=== PATIENT | female | born 1965 | race Caucasian/White ===

== ENCOUNTER → 2016-10-01 | Outpatient (CLI) | payer BC ==
--- NOTE | 2016-10-01 12:21 | DIAGNOSTIC IMAGING REPORT ---
L-SPINE MIN 4 VIEWS ROUTINE CLINICAL HISTORY: 50 years-old Female presenting with LOW BACK PAIN for several months. TECHNIQUE: Frontal, bilateral oblique, and lateral views of the lumbar spine as well as coned in lateral view of the lumbosacral junction were obtained. COMPARISON: None. FINDINGS: Dextroscoliotic curvature of the lumbar spine. Normal lumbar lordosis. Vertebral bodies and intervertebral disc spaces preserved. No significant degenerative change or evidence of osseous neural foraminal narrowing. Moderate stool burden throughout the colon. No gross pneumoperitoneum. IMPRESSION: Dextroscoliosis of the lumbar spine. Electronically signed by: Dexter Carlson M.D. 10/01/2016 12:19 PM Dictated Date/Time: 10/01/2016 12:17 PM
--- NOTE | 2016-10-01 12:21 | DIAGNOSTIC IMAGING REPORT ---
SACROILIAC JOINTS 3 VIEWS CLINICAL HISTORY: Low back pain of several months duration. FINDINGS: 3 views of the sacrum and sacroiliac joints are obtained. No prior studies are available for comparison at the time of dictation. The skeletal structures are osteopenic. There is no radiographic evidence of fracture. Sclerotic degenerative change is noted in the sacroiliac joints. No bony erosion is identified. Sclerotic change is also seen in the pubic symphysis. The hip joints are intact as imaged. There is a nonobstructed abdominal bowel gas pattern. IMPRESSION: 1. No acute bony abnormality is seen. 2. Osteopenia and mild sclerotic degenerative change of the sacroiliac joints as above. Electronically signed by: Ray White M.D. 10/01/2016 12:20 PM Dictated Date/Time: 10/01/2016 12:18 PM
== END | disposition home or self-care (01) ==
LOC: C.RAD 11:47
PROVIDERS: ATTEND Nurse Practitioner Family
DX: M54.5 Low back pain (principal); M41.86 Other forms of scoliosis, lumbar region; M85.80 Other specified disorders of bone density and structure, unspecified site

== ENCOUNTER → 2016-11-11 | Outpatient (CLI) | payer BC | END | disposition home or self-care (01) | LOC: C.MAMM 13:07 | PROVIDERS: ATTEND Nurse Practitioner Family | DX: M85.851 Other specified disorders of bone density and structure, right thigh (principal); M85.852 Other specified disorders of bone density and structure, left thigh ==

== ENCOUNTER 2017-01-05 16:10 | Emergency (ER) | payer BC ==
[~2017-01-05] VITALS: Ht 175.3 cm; Wt 98.0 kg
[2017-01-05 16:13] VITALS: TEMP 36.4; Ht 175.3 cm; Wt 98.0 kg
[2017-01-05 16:23] VITALS: O2SAT 98
[2017-01-05] MEDS ORDERED: SODIUM CHLORIDE 0.9% 1000ML 1,000 ML IV STA (16:23)
[2017-01-05] MEDS ORDERED: PROMETHAZINE HCL INJ 12.5 MG in SODIUM CHLORIDE 0.9% 50ML 50 ML IV STA (16:23)
--- NOTE | 2017-01-05 16:30 | EMERGENCY ROOM VISIT NOTE ---
History Report prepared by [place]: Sintia Matthew Under the Supervision of: Dr. Jet Peacock D.O. 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 She reports she felt the urgency to have a bowel movement while she was driving home this afternoon. She rushed into her home and had a BM, and while she was "bearing down" to have a bowel movement, she developed a "massive headache" and neck pain. She rates her pain as an 8/10. She denies any history of aneurysm in her family. Her LMP was several years ago due to menopause. She states her only daily medications are taken for depression and anxiety. She has never undergone major surgery before. 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 A total of 10 systems reviewed and were otherwise negative. Past Medical & Surgical Medical Problems: (1) Anxiety (2) Depression Social History Smoking Status: Never Smoker Smokeless Tobacco Use: No Alcohol Use: occasionally Drug Use: none Marital Status: Housing Status: lives with family Occupation Status: employed Current/Historical Medications Scheduled Paroxetine HCl (Paroxetine), 30 MG PO DAILY Scheduled PRN Aspirin (Aspirin Ec), 81 MG PO UD PRN for UNDECIDED Allergies Coded Allergies: No Known Allergies (Verified , 03/31/02) Physical Exam Vital Signs Date Time Temp Pulse Resp B/P (MAP) Pulse Ox O2 Delivery O2 Flow Rate FiO2 01/05/17 19:00 70 20 170/94 96 Room Air 01/05/17 18:00 68 20 151/115 95 Room Air 01/05/17 16:39 59 01/05/17 16:33 56 20 194/100 98 Room Air 01/05/17 16:23 98 Room Air 01/05/17 16:23 98 Room Air 01/05/17 16:13 36.4 65 20 196/107 100 Room Air Physical Exam GENERAL: Patient is awake and alert, very anxious and uncomfortable appearing EYES: The conjunctivae are clear. The pupils are round and reactive. EARS, NOSE, MOUTH AND THROAT: The nose is without any evidence of any deformity. Mucous membranes are moist tongue is midline NECK: The neck is nontender and supple. RESPIRATORY: Normal respiratory effort is noted there is no evidence of wheezing rhonchi or rales CARDIOVASCULAR: Regular rate and rhythm noted there no murmurs rubs or gallops normal S1 normal S2 GASTROINTESTINAL: The abdomen is soft. Bowel sounds are present in all quadrants. Abdomen is nontender MUSCULOSKELETAL/EXTREMITIES: There is no evidence of gross deformity full range of motion is noted in the hips and shoulders SKIN: There is no obvious evidence of any rash. There are no petechiae, pallor or cyanosis noted. NEUROLOGIC: Patient is awake alert and oriented x3 strength is symmetric patellar reflexes are 2+ bilaterally Medical Decision & Procedures ER Provider Diagnostic Interpretation: Radiology results as stated below per my review and radiologist interpretation: CT HEAD WITHOUT CONTRAST (CT) CLINICAL HISTORY: Acute change in mental status. Weakness. COMPARISON STUDY: 11/23/2013 TECHNIQUE: Axial CT of the brain is performed from the vertex to the skull base. IV contrast was not administered for this examination. A dose lowering technique was utilized adhering to the principles of ALARA. CT DOSE: 537.48 mGy.cm FINDINGS: No intra or extra-axial mass lesions are visualized. There is no CT evidence of acute cortical infarction. There is no evidence of midline shift. There is no acute hemorrhage. No calvarial fractures are visualized. The sella appears mildly expanded, unchanged from the preceding study There is no evidence of pathologic ventricular dilatation. There is no evidence of acute sinusitis. There is a right posterior nasal polyps versus engorgement of the nasal turbinate. IMPRESSION: No acute intracranial findings Electronically signed by: Dominic Akhtar M.D. 01/05/2017 4:35 PM CHEST ONE VIEW PORTABLE CLINICAL HISTORY: Altered mental status COMPARISON STUDY: No previous studies for comparison. FINDINGS: The cardiac and mediastinal contours are normal. There is no evidence of focal pulmonary consolidation. There is no evidence of failure. No pleural effusions are visualized. IMPRESSION: No active disease in the chest. Electronically signed by: Dominic Akhtar M.D. 01/05/2017 4:55 PM Laboratory Results 01/05/17 16:25 Red Blood Count 5.06, Mean Corpuscular Volume 84.8, Mean Corpuscular Hemoglobin 28.7, Mean Corpuscular Hemoglobin Concent 33.8, Mean Platelet Volume 10.6, Neutrophils (%) (Auto) 45.3, Lymphocytes (%) (Auto) 46.9, Monocytes (%) (Auto) 5.7, Eosinophils (%) (Auto) 1.6, Basophils (%) (Auto) 0.3, Neutrophils # (Auto) 2.86, Lymphocytes # (Auto) 2.96, Monocytes # (Auto) 0.36, Eosinophils # (Auto) 0.10, Basophils # (Auto) 0.02 01/05/17 16:25 Test 01/05/17 16:25 White Blood Count 6.31 K/uL (4.8-10.8) Red Blood Count 5.06 M/uL (4.2-5.4) Hemoglobin 14.5 g/dL (12.0-16.0) Hematocrit 42.9 % (37-47) Mean Corpuscular Volume 84.8 fL (80-100) Mean Corpuscular Hemoglobin 28.7 pg (25-34) Mean Corpuscular Hemoglobin Concent 33.8 g/dl (32-36) Platelet Count 184 K/uL (130-400) Mean Platelet Volume 10.6 fL (7.4-10.4) Neutrophils (%) (Auto) 45.3 % Lymphocytes (%) (Auto) 46.9 % Monocytes (%) (Auto) 5.7 % Eosinophils (%) (Auto) 1.6 % Basophils (%) (Auto) 0.3 % Neutrophils # (Auto) 2.86 K/uL (1.4-6.5) Lymphocytes # (Auto) 2.96 K/uL (1.2-3.4) Monocytes # (Auto) 0.36 K/uL (0.11-0.59) Eosinophils # (Auto) 0.10 K/uL (0-0.5) Basophils # (Auto) 0.02 K/uL (0-0.2) RDW Standard Deviation 38.1 fL (36.4-46.3) RDW Coefficient of Variation 12.5 % (11.5-14.5) Immature Granulocyte % (Auto) 0.2 % Immature Granulocyte # (Auto) 0.01 K/uL (0.00-0.02) Erythrocyte Sedimentation Rate 17 mm/hr (0-21) Prothrombin Time 10.7 SECONDS (9.0-12.0) Prothromb Time International Ratio 1.0 (0.9-1.1) Activated Partial Thromboplast Time 26.6 SECONDS (21.0-31.0) Partial Thromboplastin Ratio 1.0 Anion Gap 10.0 mmol/L (3-11) Est Creatinine Clear Calc Drug Dose 73.7 ml/min Estimated GFR () 66.4 Estimated GFR (Non- 57.3 BUN/Creatinine Ratio 14.5 (10-20) Calcium Level 9.2 mg/dl (8.5-10.1) Magnesium Level 2.0 mg/dl (1.8-2.4) Total Bilirubin 0.3 mg/dl (0.2-1) Direct Bilirubin 0.1 mg/dl (0-0.2) Aspartate Amino Transf (AST/SGOT) 17 U/L (15-37) Alanine Aminotransferase (ALT/SGPT) 27 U/L (12-78) Alkaline Phosphatase 147 U/L (45-117) Troponin I < 0.015 ng/ml (0-0.045) C-Reactive Protein 1.18 mg/dl (0-0.29) Total Protein 8.1 gm/dl (6.4-8.2) Albumin 3.9 gm/dl (3.4-5.0) Beta-Hydroxybutyric Acid 1.70 mg/dL (0.2-2.81) Thyroid Stimulating Hormone (TSH) 2.270 uIu/ml (0.300-4.500) Laboratory results per my review. Medications Administered Medications (Trade) Dose Ordered Sig/Andrew Route Start Time Stop Time Status Last Admin Dose Admin Promethazine HCl 12.5 mg/Sodium Chloride 50.5 ml @ 204 mls/hr NOW STAT IV 01/05/17 16:23 01/05/17 16:37 DC 01/05/17 16:41 204 MLS/HR Sodium Chloride 1,000 ml @ 125 mls/hr Q8H STAT IV 01/05/17 16:23 01/05/17 19:52 DC 01/05/17 16:38 125 MLS/HR Fentanyl Citrate (Fentanyl Inj) 75 mcg Q20M PRN IV 01/05/17 17:15 01/05/17 19:52 DC 01/05/17 17:51 75 MCG Diphenhydramine HCl (Benadryl Inj) 25 mg NOW STAT IV 01/05/17 17:10 01/05/17 17:12 DC 01/05/17 17:51 25 MG ECG Indication: weakness Rate (beats per minute): 61 Rhythm: normal sinus Findings: ST depression (Diffuse ST segment depressions noted), no ectopy Comparison ECG Date: no prior available ED Course 1619: The patient was evaluated in room A2. A complete history and physical examination were performed. 1623: NSS 1000 ml @ 125 mls/hr IV, Promethazine HCl 12.5, NSS 50.5 ml @ 204 mls/ hr IV. 1707: I reevaluated the patient. She is resting comfortably. 1710: Benadryl 25 mg IV. 1715: Fentanyl Citrate 75 mcg IV. 1900: I reevaluated the patient. I discussed my recommendation we perform a lumbar puncture procedure to rule out further diagnoses, but after speaking with her , she states she feels completely better and would like to go home. I discussed her results and discharge instructions and she verbalized complete understanding and agreement. Medical Decision Prior records/ancillary studies reviewed. Triage Nursing notes reviewed. The patient's history was concerning for headache. Differential diagnosis: Etiologies such as migraine headache, meningitis, sinusitis, CO exposure, ICH, SAH, infection, tumor, headache, sinus thrombosis, arterial dissection, as well as others were entertained. The patient is a 51-year-old female who presented to the emergency department for an evaluation of headache. The patient had an acute onset of a headache which she described as very significant. The patient states that she was having a bowel movement prior to the onset of the headache. The patient presented to the emergency department quickly and had her initial CAT scan before 6 hours of the onset of headache. The patient did not have any focal neurologic deficit. She had no meningismus or fever. She did have some neck pain. The patient was treated with IV fluids IV pain medicine and IV antiemetics. She was found have an elevated blood pressure initially but this improved while she was in the emergency department. I discussed the patient's laboratory and radiographic studies with her. I discussed my concerns were that the patient may be suffering from a subarachnoid hemorrhage with a headache. I discussed the workup for subarachnoid hemorrhage which includes radiographic studies as well as a lumbar puncture especially if the headache has been ongoing for greater than 6 hours. At this time the patient is feeling much better. I discussed the limitations of the studies that she had to this point including the CT as well as a CT angiography the brain and neck. The patient discussed this with her significant other. Ultimately she chose not to have a lumbar puncture at this time. She was encouraged to rest and avoid any strenuous activity. She was also encouraged to follow-up with her primary care physician as soon as possible. I discussed that her blood pressure was elevated and her glucose was also elevated. I encouraged her to have these both rechecked to ensure that she did not require any treatment specifically for hypertension or diabetes. I also encouraged her to return to the emergency department immediately if symptoms change worsen or the need arises. Specifically I told her to return if she had worsening headache syncope and vertigo symptoms any weakness severe neck pain fever or if any other worrisome symptoms develop. Medication Reconcilliation Current Medication List: was personally reviewed by me Blood Pressure Screening Patient's blood pressure: Elevated blood pressure Blood pressure disposition: Referred to PCP Impression Primary Impression: Acute headache Scribe Attestation The scribe's documentation has been prepared under my direction and personally reviewed by me in its entirety. I confirm that the note above accurately reflects all work, treatment, procedures, and medical decision making performed by me. Departure Information Dispostion Being Evaluated By Hospitalist Referrals Brittni Sigala, C.R.N.P. (PCP) Patient Instructions Headache Pain, My [facility] Additional Instructions Return to the emergency department immediately if symptoms change worsen or the need arises. I would recommend a follow-up appointment with your doctor within the next 24-48 hours for a recheck. Your blood pressure as well as her blood sugar were found to be elevated in the emergency department today. I would recommend a recheck of these to be sure that you do not require specific medications to treat these conditions. Rest and avoid any strenuous activities. Return to the emergency department immediately if symptoms change worsen or the need arises. Specifically return if you develop recurrence of the headache severe neck pain high fever altered mental status passing out or if any other worrisome symptoms develop. Problem Qualifiers Primary Impression: Acute headache Headache type: unspecified Intractability: not intractable Qualified Codes : R51 - Headache
--- NOTE | 2017-01-05 16:36 | DIAGNOSTIC IMAGING REPORT ---
CT HEAD WITHOUT CONTRAST (CT) CLINICAL HISTORY: Acute change in mental status. Weakness. COMPARISON STUDY: 11/23/2013 TECHNIQUE: Axial CT of the brain is performed from the vertex to the skull base. IV contrast was not administered for this examination. A dose lowering technique was utilized adhering to the principles of ALARA. CT DOSE: 537.48 mGy.cm FINDINGS: No intra or extra-axial mass lesions are visualized. There is no CT evidence of acute cortical infarction. There is no evidence of midline shift. There is no acute hemorrhage. No calvarial fractures are visualized. The sella appears mildly expanded, unchanged from the preceding study There is no evidence of pathologic ventricular dilatation. There is no evidence of acute sinusitis. There is a right posterior nasal polyps versus engorgement of the nasal turbinate. IMPRESSION: No acute intracranial findings Electronically signed by: Dominic Akhtar M.D. 01/05/2017 4:35 PM Dictated Date/Time: 01/05/2017 4:33 PM
[2017-01-05 16:43] LABS: BASO % 0.3 %; BASO ABS # 0.02 K/uL (0-0.2); COMPLETE YES; EOS % 1.6 %; HEMATOCRIT 42.9 % (37-47); IG% 0.2 %; LYMPH % 46.9 %; LYMPH ABS # 2.96 K/uL (1.2-3.4); MEAN CELL VOLUME 84.8 fL (80-100); MEAN CORPUSCULAR HEMOGLOBIN 28.7 pg (25-34); MEAN CORPUSCULAR HGB CONC 33.8 g/dl (32-36); MEAN PLATELET VOLUME 10.6 fL (7.4-10.4); MONO % 5.7 %; NEUT % 45.3 %; PLATELET COUNT 184 K/uL (130-400); RED BLOOD COUNT 5.06 M/uL (4.2-5.4); WHITE BLOOD COUNT 6.31 K/uL (4.8-10.8)
[2017-01-05] MEDS ORDERED: ASPI81TA28 PO (16:44)
[2017-01-05] MEDS ORDERED: PARO30TA3 PO (16:44)
[2017-01-05 16:54] LABS: PROTHROMBIN TIME (PATIENT) 10.7 SECONDS (9.0-12.0)
--- NOTE | 2017-01-05 16:56 | DIAGNOSTIC IMAGING REPORT ---
CHEST ONE VIEW PORTABLE CLINICAL HISTORY: Altered mental status COMPARISON STUDY: No previous studies for comparison. FINDINGS: The cardiac and mediastinal contours are normal. There is no evidence of focal pulmonary consolidation. There is no evidence of failure. No pleural effusions are visualized.[ IMPRESSION: No active disease in the chest. Electronically signed by: Dominic Akhtar M.D. 01/05/2017 4:55 PM Dictated Date/Time: 01/05/2017 4:55 PM
[2017-01-05] MEDS ORDERED: DiphenhydrAMINE HCL 50 MG/ML VIAL IV STA (17:10)
[2017-01-05] MEDS ORDERED: FENTANYL CITRATE INJ 50 MCG/1 ML 2 ML VIAL IV PRN (17:15)
[2017-01-05] MEDS ORDERED: OPTIRAY 320 IV PRN (17:15)
[2017-01-05 17:19] LABS: ALKALINE PHOSPHATASE 147 U/L (45-117); ALT/SGPT 27 U/L (12-78); AST/SGOT 17 U/L (15-37); BLOOD UREA NITROGEN 16 mg/dl (7-18); BUN/CREATININE RATIO 14.5 (10-20); CALCIUM 9.2 mg/dl (8.5-10.1); CARBON DIOXIDE 25 mmol/L (21-32); CHLORIDE 97 mmol/L (98-107); GLUCOSE 352 mg/dl (70-99); POTASSIUM 3.4 mmol/L (3.5-5.1); SODIUM 132 mmol/L (136-145)
--- NOTE | 2017-01-05 18:49 | DIAGNOSTIC IMAGING REPORT ---
HEAD ANGIO WITH CONTRAST CLINICAL HISTORY: ANGIO WITH PER DR CONRAD TECHNIQUE: Transaxial acquisition. Multi axial reformatted images COMPARISON STUDY: None FINDINGS: All major intracranial arterial structures are unremarkable. All major arterial structures of the anterior middle and posterior cerebral circulation are unremarkable. There is no evidence for significant stenotic lesion. There is no aneurysmal dilatation. IMPRESSION: Normal study The above report was generated using voice recognition software. It may contain grammatical, syntax or spelling errors. Electronically signed by: David Lucas M.D. 01/05/2017 6:48 PM Dictated Date/Time: 01/05/2017 6:46 PM
--- NOTE | 2017-01-05 18:52 | DIAGNOSTIC IMAGING REPORT ---
NECK ANGIO WITH CONTRAST HISTORY: Mental status change TIA TECHNIQUE: Multiaxial CT images of the neck were performed following the intravenous administration of contrast to evaluate the major cervical vessels. Maximum intensity projection images were also obtained. All measurements were calculated based on NASCET criteria. A dose lowering technique was utilized adhering to the principles of ALARA. COMPARISON STUDY: None. FINDINGS: The aortic arch and proximal great vessels are widely patent. There is no significant stenosis, occlusion, or dissection identified within the bilateral common carotid, internal carotid, or vertebral arteries. IMPRESSION: No significant stenosis, occlusion, or dissection identified within the carotid or vertebral arteries. The above report was generated using voice recognition software. It may contain grammatical, syntax or spelling errors. Electronically signed by: David Lucas M.D. 01/05/2017 6:51 PM Dictated Date/Time: 01/05/2017 6:49 PM
[2017-01-05 19:00] VITALS: BP 170/94; PULSE 70; O2SAT 96
== END 2017-01-05 19:33 | disposition home or self-care (01) ==
LOC: C.EDB 16:11 → C.EDA 19:33
DX: R51 Headache (principal); F32.9 Major depressive disorder, single episode, unspecified; F41.9 Anxiety disorder, unspecified; Z79.899 Other long term (current) drug therapy

== ENCOUNTER → 2017-01-20 | Outpatient (CLI) | payer BC ==
[~2017-01-20] MED LIST: ASPI81TA28 PO; PARO30TA3 PO
--- NOTE | 2017-01-20 17:47 | DIAGNOSTIC IMAGING REPORT ---
BRAIN WITHOUT CONTRAST HISTORY: Mental status change. HEADACHES TECHNIQUE: Multiplanar multisequence MRI of the brain was performed without the use of contrast. COMPARISON STUDY: 06/10/2013 FINDINGS: There are no areas of restricted diffusion to suggest acute infarction. The midline structures are intact. The paranasal sinuses are clear. The mastoid air cells are clear. The ventricles and sulci are within normal limits for age. There is no mass, hematoma, midline shift. The major vascular flow-voids at the skull base are well maintained. IMPRESSION: No acute intracranial abnormality. Negative study. The above report was generated using voice recognition software. It may contain grammatical, syntax or spelling errors. Electronically signed by: David Lucas M.D. 01/20/2017 5:46 PM Dictated Date/Time: 01/20/2017 5:41 PM
== END | disposition home or self-care (01) ==
LOC: C.MRI 17:07
PROVIDERS: ATTEND Student in an Organized Health Care Education/Training Program
DX: G44.53 Primary thunderclap headache (principal)

== ENCOUNTER 2021-12-26 08:34 | Inpatient (IN) ==
[2021-12-26] MEDS ORDERED: SODIUM CHLORIDE 0.9% 1000ML 1,000 ML IV SCH (09:00)
--- NOTE | 2021-12-26 09:30 | Emergency Department Note ---
Impression & Plan Suicide attempt by multiple drug overdose ED Provider Note CHIEF COMPLAINT: Intentional overdose HISTORY OF PRESENT ILLNESS: This 56-year-old female patient presents to the emergency department after taking 24- 2 mg Lunesta tablets at 2 AM and 16-25 mg Benadryl tablets at 2:30 AM. Patient states her intention was to become so sleepy that she did not worry about hanging herself thereafter. Patient was sound asleep this morning which concerned her as she is not a heavy sleeper. He woke her up and then she told him what she had done. Patient has a longstanding history of depression and states she has been considering suicide for some time. Patient has been having a hard time at work, has applied for several different jobs and not been offered the position. Has been states he has been encouraging her to stay at the position because she can retire in just over a year. She states that she has overwhelmed by the pressures at work and by the expectations of her family. REVIEW OF SYSTEMS: A review of systems was performed with positives and pertinent negatives listed in the history of present illness. 10 systems were reviewed and are otherwise negative. ALLERGIES: see below MEDICATIONS: see below PMH: see below SOCIAL HISTORY: see below DDx:Mood disorder, infection, hypoglycemia, electrolyte abnormalities, cardiac sources, intracerebral event, toxicologic, trauma, neurologic, as well as other pathologies. PHYSICAL EXAM: Vital signs reviewed. General: Well-appearing 56-year-old female, in no significant distress. HEENT: No scleral icterus, PERRLA, neck supple. Moist mucous membranes Cardiovascular: Slightly tachycardic but regular Pulmonary: Clear to auscultation bilaterally, normal work of breathing. Abdomen: Soft, nontender, nondistended, positive bowel sounds. Musculoskeletal: Atraumatic, no peripheral edema. Neurologic: Patient awake alert and oriented x 3, speech is clear Psych: Positive SI with plan, negative HI Skin: Warm, dry, no rash EMERGENCY DEPARTMENT COURSE/MDM: This patient was evaluated and seems somewhat calm. She does have a slightly elevated heart rate but otherwise there is no signs of toxidrome. Poison control was contacted and stated the patient is out of the window for monitoring and would be considered cleared from their standpoint. Patient was referred to the mental health counseling case manager for psychiat demi assessment. Patient was referred for inpatient treatment and is pending referral to S. Case has been signed out at the change of shift to Dr. Nicolle Wells, pending disposition. MONITORING: An order for cardiac monitoring was placed and the patient is noted to be in a normal sinus rhythm at 99 beats per minute. EKG: Sinus tachycardia 106 bpm. Low voltage QRS. QTC is 462. No PVC, no PAC. No significant change from previous with the exception of rate increase of 45 bpm when compared to January 05, 2017. DISPOSITION:Pending Past Med/Surg History Medical History (Reviewed 12/26/21 @ : by Rosie Albarran MD) Acute headache Anxiety Depression Family History (Reviewed 12/26/21 @ : by Rosie Albarran MD) Denies family history of Ovarian cancer Breast cancer Colorectal cancer Social History (Reviewed 12/26/21 @ : by Rosie Albarran MD) Smoking Status: Never smoker Preferred Language: Kiswahili Feels Safe at Home: Yes Allergies Allergies Allergy/AdvReac Type Severity Reaction Status Date / Time No Known Allergies Allergy Verified 01/16/21 08:25 Home Meds Home Medications Medication Instructions Recorded Confirmed eszopiclone 2 mg tablet (Lunesta) 2 mg PO HS 01/16/21 12/26/21 glimepiride 4 mg tablet 4 mg PO DAILY 01/16/21 12/26/21 lisinopril 10 mg tablet 10 mg PO DAILY 01/16/21 12/26/21 metformin 1,000 mg tablet 1,000 mg PO BID 01/16/21 12/26/21 semaglutide 0.25 mg or 0.5 mg (2 1 mg subcut .weekly 01/16/21 12/26/21 mg/1.5 mL) subcutaneous pen injector (Ozempic) simvastatin 10 mg tablet 5 mg PO DAILY 01/16/21 12/26/21 pantoprazole 40 mg tablet,delayed 40 mg PO DAILY 12/26/21 12/26/21 release paroxetine HCl 40 mg tablet 40 mg PO DAILY 12/26/21 12/26/21 Results & Data (ED) Vital Signs Vital Signs - 24 hr 12/26/21 08:40 12/26/21 09:41 12/26/21 09:58 Temperature 37.4 C Temperature Source Oral Pulse Rate 116 H 102 H Pulse Rate [Apical] Pulse Rate from SpO2 Sensor Pulse Rhythm Pulse Rhythm [Apical] Pulse Strength [Apical] Respiratory Rate 16 23 Respiratory Effort / Characteristics Respiratory Depth Respiratory Pattern Blood Pressure 123/73 126/84 Blood Pressure [Right Arm] Blood Pressure Mean 89 98 Blood Pressure Mean [Right Arm] Blood Pressure Position [Right Arm] Pulse Oximetry 94 Oxygen Delivery Method Room Air Sepsis Recent Fever Within 48 Hours No Sepsis New/Unexplained Change in Mental Status No Sepsis Action Taken by Nursing No Action Required 12/26/21 09:58 12/26/21 10:00 12/26/21 10:00 Temperature Temperature Source Pulse Rate 98 H 99 H Pulse Rate [Apical] Pulse Rate from SpO2 Sensor 98 H 99 H Pulse Rhythm Pulse Rhythm [Apical] Pulse Strength [Apical] Respiratory Rate 26 H 24 Respiratory Effort / Characteristics Respiratory Depth Respiratory Pattern Blood Pressure 138/74 Blood Pressure [Right Arm] Blood Pressure Mean 95 Blood Pressure Mean [Right Arm] Blood Pressure Position [Right Arm] Pulse Oximetry 94 93 Oxygen Delivery Method Sepsis Recent Fever Within 48 Hours Sepsis New/Unexplained Change in Mental Status Sepsis Action Taken by Nursing 12/26/21 11:50 12/26/21 11:53 12/26/21 11:54 Temperature Temperature Source Pulse Rate 92 H Pulse Rate [Apical] 92 H Pulse Rate from SpO2 Sensor Pulse Rhythm Regular Pulse Rhythm [Apical] Pulse Strength [Apical] Respiratory Rate 14 14 Respiratory Effort / Characteristics Respiratory Depth Normal Respiratory Pattern Blood Pressure Blood Pressure [Right Arm] 117/59 L Blood Pressure Mean Blood Pressure Mean [Right Arm] 78 Blood Pressure Position [Right Arm] Lying Pulse Oximetry 98 95 Oxygen Delivery Method Room Air Room Air Sepsis Recent Fever Within 48 Hours Sepsis New/Unexplained Change in Mental Status Sepsis Action Taken by Nursing 12/26/21 13:00 12/26/21 14:47 12/26/21 16:30 Temperature Temperature Source Pulse Rate Pulse Rate [Apical] 91 H 89 87 Pulse Rate from SpO2 Sensor Pulse Rhythm Pulse Rhythm [Apical] Regular Regular Pulse Strength [Apical] Normal Respiratory Rate 14 14 18 Respiratory Effort / Characteristics Non-Labored Non-Labored Non-Labored Respiratory Depth Normal Normal Normal Respiratory Pattern Regular Blood Pressure Blood Pressure [Right Arm] 115/85 103/51 L 127/88 Blood Pressure Mean Blood Pressure Mean [Right Arm] 95 68 101 Blood Pressure Position [Right Arm] Lying Lying Lying Pulse Oximetry 91 94 97 Oxygen Delivery Method Room Air Room Air Room Air Sepsis Recent Fever Within 48 Hours Sepsis New/Unexplained Change in Mental Status Sepsis Action Taken by Long-Term Medications Current Medication List: was personally reviewed by me Laboratory Data Attestation: I reviewed the patient's lab results. Result diagrams: 12/26/21 09:57 12/26/21 09:57 Lab Results 12/26/21 12/26/21 12/26/21 Range/Units 09:57 09:57 09:57 WBC 8.85 (4.8-10.8) K/ul RBC 4.72 (3.93-5.22) M/uL Hgb 13.4 (12.0-16.0) g/dl Hct 40.1 (34.1-44.9) % MCV 85.0 (80.0-100.0) fL MCH 28.4 (25.0-34.0) pg MCHC 33.4 (32.0-36.0) g/dL RDW Std Deviation 38.2 (36.4-46.3) fL RDW Coeff of Tru 12.4 (11.5-14.5) % Plt Count 174 (130-400) K/uL MPV 9.5 (9.4-12.3) fL Immature Gran % (Auto) 0.3 % Neut % (Auto) 74.9 % Lymph % (Auto) 16.3 % [place] % (Auto) 7.9 % Eos % (Auto) 0.3 % Baso % (Auto) 0.3 % Neut # (Auto) 6.62 H (1.4-6.5) K/uL Lymph # (Auto) 1.44 (1.2-3.4) K/uL Knox # (Auto) 0.70 (0.24-0.82) K/uL Eos # (Auto) 0.03 (0-0.50) K/uL Baso # (Auto) 0.03 (0-0.2) K/uL Immature Gran # (Auto) 0.03 H (0.00-0.02) K/uL Sodium 135 L (136-145) mmol/L Potassium 4.0 (3.5-5.1) mmol/L Chloride 100 (98-107) mmol/L Carbon Dioxide 27 (21-32) mmol/L Anion Gap 8 (3-11) BUN 16 (6-23) mg/dl Creatinine 0.88 (0.6-1.2) mg/dl Est Cr Clr Drug Dosing Not Reportable Est GFR ( Amer) 83.9 ml/min Est GFR (Non-Af Amer) 72.4 ml/min BUN/Creatinine Ratio 18.2 (10-20) Glucose 228 H (70-99(Fasting)) mg/dl Calcium 9.3 (8.5-10.1) mg/dl Total Bilirubin 0.4 (0.2-1.0) mg/dl AST 15 (13-39) U/L ALT 18 (7-52) U/L Alkaline Phosphatase 93 (34-104) U/L Total Protein 7.3 (6.0-8.3) gm/dl Albumin 4.0 (3.4-5.0) gm/dl Globulin 3.3 (2.5-4.0) gm/dl Albumin/Globulin Ratio 1.2 (0.9-2) TSH (0.300-4.500) uIu/ml Urine Color Urine Appearance (Clear) Urine pH (4.5-7.5) Ur Specific [place] (1.000-1.030) Urine Protein (Negative) Urine Glucose (UA) (Negative) Urine Ketones (Negative) Urine Blood (Negative) Urine Nitrite (Negative) Urine Bilirubin (Negative) Urine Urobilinogen (Negative) Ur Leukocyte Esterase (Negative) Urine WBC (Auto) (0-5) /hpf Urine RBC (Auto) (0-4) /hpf U Hyaline Cast (Auto) (0-5) /lpf U Epithel Cells (Auto) (0-5) /lpf Urine Bacteria (Auto) (Negative) Salicylates < 3.0 L (3.0-30) mg/dl Urine Opiates Screen (Neg) Ur Methadone, Qual (Neg) Acetaminophen < 3 L (10-30) ug/ml Urine Barbiturates (Neg) Ur Phencyclidine (PCP) (Neg) U Amphetamin/Meth Scrn (Neg) MDMA (Ecstasy) Screen (Neg) U Benzodiazepines Scrn (Neg) Ur Cocaine Metabolite (Neg) U Marijuana (THC) Screen (Neg) Ethyl Alcohol mg/dL (<10.0) mg/dl SARS-CoV-2, RNA, NAAT (NEGATIVE) 12/26/21 12/26/21 12/26/21 Range/Units 09:57 09:57 Unknown WBC (4.8-10.8) K/ul RBC (3.93-5.22) M/uL Hgb (12.0-16.0) g/dl Hct (34.1-44.9) % MCV (80.0-100.0) fL MCH (25.0-34.0) pg MCHC (32.0-36.0) g/dL RDW Std Deviation (36.4-46.3) fL RDW Coeff of Tru (11.5-14.5) % Plt Count (130-400) K/uL MPV (9.4-12.3) fL Immature Gran % (Auto) % Neut % (Auto) % Lymph % (Auto) % Knox % (Auto) % Eos % (Auto) % Baso % (Auto) % Neut # (Auto) (1.4-6.5) K/uL Lymph # (Auto) (1.2-3.4) K/uL [place] # (Auto) (0.24-0.82) K/uL Eos # (Auto) (0-0.50) K/uL Baso # (Auto) (0-0.2) K/uL Immature Gran # (Auto) (0.00-0.02) K/uL Sodium (136-145) mmol/L Potassium (3.5-5.1) mmol/L Chloride (98-107) mmol/L Carbon Dioxide (21-32) mmol/L Anion Gap (3-11) BUN (6-23) mg/dl Creatinine (0.6-1.2) mg/dl Est Cr Clr Drug Dosing Est GFR ( Amer) ml/min Est GFR (Non-Af Amer) ml/min BUN/Creatinine Ratio (10-20) Glucose (70-99(Fasting)) mg/dl Calcium (8.5-10.1) mg/dl Total Bilirubin (0.2-1.0) mg/dl AST (13-39) U/L ALT (7-52) U/L Alkaline Phosphatase (34-104) U/L Total Protein (6.0-8.3) gm/dl Albumin (3.4-5.0) gm/dl Globulin (2.5-4.0) gm/dl Albumin/Globulin Ratio (0.9-2) TSH 0.825 (0.300-4.500) uIu/ml Urine Color Yellow Urine Appearance Clear (Clear) Urine pH 5.5 (4.5-7.5) Ur Specific [place] 1.011 (1.000-1.030) Urine Protein Negative (Negative) Urine Glucose (UA) 2+ H (Negative) Urine Ketones Trace H (Negative) Urine Blood Negative (Negative) Urine Nitrite Negative (Negative) Urine Bilirubin Negative (Negative) Urine Urobilinogen Negative (Negative) Ur Leukocyte Esterase 1+ H (Negative) Urine WBC (Auto) 1-5 (0-5) /hpf Urine RBC (Auto) 0-4 (0-4) /hpf U Hyaline Cast (Auto) 0 (0-5) /lpf U Epithel Cells (Auto) >30 H (0-5) /lpf Urine Bacteria (Auto) Negative (Negative) Salicylates (3.0-30) mg/dl Urine Opiates Screen (Neg) Ur Methadone, Qual (Neg) Acetaminophen (10-30) ug/ml Urine Barbiturates (Neg) Ur Phencyclidine (PCP) (Neg) U Amphetamin/Meth Scrn (Neg) MDMA (Ecstasy) Screen (Neg) U Benzodiazepines Scrn (Neg) Ur Cocaine Metabolite (Neg) U Marijuana (THC) Screen (Neg) Ethyl Alcohol mg/dL < 10.0 (<10.0) mg/dl SARS-CoV-2, RNA, NAAT (NEGATIVE) 12/26/21 12/26/21 Range/Units Unknown Unknown WBC (4.8-10.8) K/ul RBC (3.93-5.22) M/uL Hgb (12.0-16.0) g/dl Hct (34.1-44.9) % MCV (80.0-100.0) fL MCH (25.0-34.0) pg MCHC (32.0-36.0) g/dL RDW Std Deviation (36.4-46.3) fL RDW Coeff of Tru (11.5-14.5) % Plt Count (130-400) K/uL MPV (9.4-12.3) fL Immature Gran % (Auto) % Neut % (Auto) % Lymph % (Auto) % Knox % (Auto) % Eos % (Auto) % Baso % (Auto) % Neut # (Auto) (1.4-6.5) K/uL Lymph # (Auto) (1.2-3.4) K/uL [place] # (Auto) (0.24-0.82) K/uL Eos # (Auto) (0-0.50) K/uL Baso # (Auto) (0-0.2) K/uL Immature Gran # (Auto) (0.00-0.02) K/uL Sodium (136-145) mmol/L Potassium (3.5-5.1) mmol/L Chloride (98-107) mmol/L Carbon Dioxide (21-32) mmol/L Anion Gap (3-11) BUN (6-23) mg/dl Creatinine (0.6-1.2) mg/dl Est Cr Clr Drug Dosing Est GFR ( Amer) ml/min Est GFR (Non-Af Amer) ml/min BUN/Creatinine Ratio (10-20) Glucose (70-99(Fasting)) mg/dl Calcium (8.5-10.1) mg/dl Total Bilirubin (0.2-1.0) mg/dl AST (13-39) U/L ALT (7-52) U/L Alkaline Phosphatase (34-104) U/L Total Protein (6.0-8.3) gm/dl Albumin (3.4-5.0) gm/dl Globulin (2.5-4.0) gm/dl Albumin/Globulin Ratio (0.9-2) TSH (0.300-4.500) uIu/ml Urine Color Urine Appearance (Clear) Urine pH (4.5-7.5) Ur Specific [place] (1.000-1.030) Urine Protein (Negative) Urine Glucose (UA) (Negative) Urine Ketones (Negative) Urine Blood (Negative) Urine Nitrite (Negative) Urine Bilirubin (Negative) Urine Urobilinogen (Negative) Ur Leukocyte Esterase (Negative) Urine WBC (Auto) (0-5) /hpf Urine RBC (Auto) (0-4) /hpf U Hyaline Cast (Auto) (0-5) /lpf U Epithel Cells (Auto) (0-5) /lpf Urine Bacteria (Auto) (Negative) Salicylates (3.0-30) mg/dl Urine Opiates Screen Neg (Neg) Ur Methadone, Qual Neg (Neg) Acetaminophen (10-30) ug/ml Urine Barbiturates Neg (Neg) Ur Phencyclidine (PCP) Neg (Neg) U Amphetamin/Meth Scrn Neg (Neg) MDMA (Ecstasy) Screen Neg (Neg) U Benzodiazepines Scrn Neg (Neg) Ur Cocaine Metabolite Neg (Neg) U Marijuana (THC) Screen Neg (Neg) Ethyl Alcohol mg/dL (<10.0) mg/dl SARS-CoV-2, RNA, NAAT NEGATIVE (NEGATIVE) Administered Medications Discontinued Medications Sodium Chloride (Nss 1000ml) 1,000 mls @ 999 mls/hr IV .Q1H1M VICTORIA Stop: 12/26/21 10:00 Last Infusion: 12/26/21 17:09 Dose: 0 mls/hr Documented By: Admin: 12/26/21 10:09 Dose: 999 mls/hr Documented By: [email or web address] Blood Pressure Blood Pressure Findings: Elevated blood pressure Blood Pressure Disposition: Referred to patients primary care provider Discharge Plan Visit Data Chief Complaint: Mental Health Evaluation Stated Complaint: INTENTIONAL OVERDOSE ED Provider: Rosie Albarran Discharge Problem: Suicide attempt by multiple drug overdose Forms Stand Alone Forms: My [facility], Suicide Prevention Resources Prescriptions Prescriptions: No Action metformin 1,000 mg tablet 1,000 mg PO BID Ozempic 0.25 mg or 0.5 mg(2 mg/1.5 mL) pen injector 1 mg subcut .weekly Label Comments: takes on thursday evenings lisinopril 10 mg tablet 10 mg PO DAILY glimepiride 4 mg tablet 4 mg PO DAILY simvastatin 10 mg tablet 5 mg PO DAILY eszopiclone [Lunesta] 2 mg tablet 2 mg PO HS pantoprazole 40 mg Tablet,Delayed Release (Dr/Ec) 40 mg PO DAILY paroxetine HCl 40 mg Tablet 40 mg PO DAILY Referrals Referrals: Brittni Sigala CRNP [Primary Care Provider] - : Suicide attempt by multiple drug overdose Qualifiers: Encounter type: initial encounter Qualified Code(s): T50.912A - Poisoning by multiple unspecified drugs, medicaments and biological substances, intentional self-harm, initial encounter
[2021-12-26 09:41] LABS: Appearance Urine Clear (Clear); Bacteria Urine Automated Negative (Negative); Bilirubin Urine Negative (Negative); Blood Urine Negative (Negative); Cast Urine Automated 0 /lpf (0-5); Color Urine Yellow; Epithelial Cell Urine Auto >30 /lpf (0-5); Glucose Urine UA 2+ (Negative); Ketones Urine Trace (Negative); Leukocyte Esterase Urine 1+ (Negative); Nitrite Urine Negative (Negative); Protein Urine Negative (Negative); RBC Urine Automated 0-4 /hpf (0-4); Specific Gravity Urine 1.011 (1.000-1.030); Urobilinogen Urine Negative (Negative); pH Urine 5.5 (4.5-7.5)
[2021-12-26 10:14] LABS: Amphetamines+Metham, Urine Neg (Neg); Barbiturates, Urine Neg (Neg); Benzodiazepine, Urine Neg (Neg); Cocaine, Urine Neg (Neg); MDMA (Ecstacy), Urine Neg (Neg); Methadone, Urine Neg (Neg); Opiate, Urine Neg (Neg); Phencyclidine, Urine Neg (Neg)
[2021-12-26 10:14] LABS: Basophils # (auto) 0.03 K/uL (0-0.2); Basophils % (auto) 0.3 %; Eosinophils # (auto) 0.03 K/uL (0-0.50); Eosinophils % (auto) 0.3 %; Hematocrit (blood only) 40.1 % (34.1-44.9); Hemoglobin 13.4 g/dl (12.0-16.0); Immature Granulocytes # (auto) 0.03 K/uL (0.00-0.02); Immature Granulocytes % (auto) 0.3 %; Lymphocytes # (auto) 1.44 K/uL (1.2-3.4); Lymphocytes % (auto) 16.3 %; Mean Corpuscular Hemoglobin 28.4 pg (25.0-34.0); Mean Corpuscular Hgb Conc 33.4 g/dL (32.0-36.0); Mean Platelet Volume 9.5 fL (9.4-12.3); Monocytes % (auto) 7.9 %; Neutrophils # (auto) 6.62 K/uL (1.4-6.5); Neutrophils % (auto) 74.9 %; Platelet Count 174 K/uL (130-400); RDW Coefficient of Variation 12.4 % (11.5-14.5); RDW Standard Deviation 38.2 fL (36.4-46.3); Red Blood Count 4.72 M/uL (3.93-5.22); White Blood Count 8.85 K/ul (4.8-10.8)
[2021-12-26 10:37] LABS: Alanine Aminotransferase 18 U/L (7-52); Albumin Globulin Ratio 1.2 (0.9-2); Alkaline Phosphatase 93 U/L (34-104); Anion Gap 8 (3-11); Aspartate Aminotransferase 15 U/L (13-39); BUN Creatinine Ratio 18.2 (10-20); Bilirubin,Total 0.4 mg/dl (0.2-1.0); Blood Urea Nitrogen 16 mg/dl (6-23); Calcium 9.3 mg/dl (8.5-10.1); Carbon Dioxide 27 mmol/L (21-32); Chloride 100 mmol/L (98-107); Est GFR (African American) 83.9 ml/min; Est GFR (Non-African American) 72.4 ml/min; Globulin 3.3 gm/dl (2.5-4.0); Glucose 228 mg/dl (70-99(Fasting)); Sodium 135 mmol/L (136-145); Total Protein 7.3 gm/dl (6.0-8.3)
[2021-12-26 10:39] LABS: Acetaminophen < 3 ug/ml (10-30); Salicylate < 3.0 mg/dl (3.0-30)
[2021-12-26] MEDS ORDERED: MAGNESIUM HYDROXIDE SUSP 30 ML UDC PO PRN (18:22)
[2021-12-26] MEDS ORDERED: ALUMINUM/MAGNESIUM SUSP 30 ML UDC PO PRN (18:22)
[2021-12-26] MEDS ORDERED: ACETAMINOPHEN 325 MG TAB PO PRN (18:22)
[2021-12-26] MEDS ORDERED: BISMUTH SUBSALICYLATE LIQD 236 ML PO PRN (18:22)
[2021-12-26] MEDS ORDERED: SODIUM CHLORIDE 0.65% NA SOLN 45 ML (OCEAN) PRN (18:22)
[2021-12-26] MEDS ORDERED: hydrOXYzine HCl 25 MG TAB PO PRN (18:22)
--- NOTE | 2021-12-27 01:07 | Emergency Department Note ---
ED Visit Note Patient signed out to me at change of shift from Dr. Albarran. Patient evaluated by 3 S. and accepted for admission. 201 signed by me. . : Suicide attempt by multiple drug overdose Qualifiers: Encounter type: initial encounter Qualified Code(s): T50.912A - Poisoning by multiple unspecified drugs, medicaments and biological substances, intentional self-harm, initial encounter
--- NOTE | 2021-12-27 04:51 | Electrocardiogram Report ---
Test Reason : Blood Pressure : / mmHG Vent. Rate : 106 BPM Atrial Rate : 106 BPM P-R Int : 150 ms QRS Dur : 094 ms QT Int : 348 ms P-R-T Axes : 053 010 058 degrees QTc Int : 462 ms Sinus tachycardia Low voltage QRS Nonspecific ST abnormality Poor R wave progression, consider anterior UT vs. lead placement vs. LVH When compared with ECG of 05-JAN-2017 16:23, Vent. rate has increased BY 45 BPM Nonspecific T wave abnormality, improved in Anterior leads Confirmed by Andrea Reveles ([id number]) on 12/27/2021 4:51:30 AM Referred By: REFERRED SELF Confirmed By:Andrea Reveles
--- NOTE | 2021-12-27 09:51 | History & Physical ---
Date of Service December 27, 2021 Impression / Recommendations Impression 56 yo female s/p Lunesta and Benadryl OD, clearly planned suicide attempt with phase of life issues and increased irritability at work. There is a suspected family history of mood disorder. She describes cognitive distortions and is currently declining med changes. (1) Depression: (2) Suicide attempt by multiple drug overdose: Encounter type: initial encounter Qualified Code(s): T50.912A - Poisoning by multiple unspecified drugs, medicaments and biological substances, intentional self-harm, initial encounter Plan [facility]) on q15 min checks (behavioral with suicide precautions) for safety. The patient will participate in group, recreational, and milieu therapies and will be offered additional individual and family sessions as clinically appropriate. 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, shelter employment Needs: cognitive therapy, possible work accommodations Suicide Risk Level Suicide Risk Level: High-Moderate (q15 min suicide checks) Risk Factors Assessment : Yes Do You Have Access To A Gun?: No (reports locked in a cabinet and doesn't access) Mental Health Diagnoses: Yes Substance Use Disorders: No Previous Psychiatric Hospitalization: Yes Protective Factors Assessment : Yes Employed: Yes ([employer]) Supportive Family: Yes Psychiatric History Identifying Data ARASH SOUZA is a 56-year-old F who currently lives in [place] who was admitted on 12/26/21 18:22 on a 201 voluntary commitment s/p suicide attempt. Chief Complaint "yeah I was sort of ticked that I woke up". referring to her OD. History of Present Illness Ms. Souza reports intermittent SI for several weeks/months, increasing dysthymia since the pandemic. She only feels herself when she is on a solitary vacation (camped at the beach in July) or working on home improvement projects, like replacing helen. She feels reactive to peers at work and dreads meetings and the 1 day a week she is required to go into the office. She cannot retire for another 18 months. She did try to take some graduate classes and one course wasn't as expected. She had a negative interaction with a professor via email and dropped out. She used this as an example of all of nothing thinking and how doesn't see much point to move on. She apparently waited to take the OD until her 23-year-old son was away from the home. She confirmed the history provided in the ED. as per ED CM: Pt reports that for one week she has been planning a suicide attempt by overdose followed by hanging. She chose last night to implement the plan because one of her daughters is out of town and the other was busy with her children. Her son lives with her and her and he was also out last night. She took 24 Lunesta and 16 benedryl but fell asleep. (She has been cleared by Poison Control). Her had difficulty waking her this morning, which is very unusual. When he was able to get her awake she told him that she had taken the pills and he brought her to the ER. Pt has a long hx of depression but denies prior SA. She states that a few months ago she had a plan to go into the awad and hang herself. She reports that the reason she didnt follow through is because she was afraid it wouldnt work and she would end up worse than she is now. She reports her main stressor is her job. 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 She has recently interviewed for other lucien bs and did not get them. This added to her depression. She reports generalized anxiety of 8 out of 10. She states she is in a constant state of fight or flight at her job. She denies D&A use and does not smoke. She has no hx of trauma or abuse. She states that her sleep is ok, sleeping approx. 6 hrs per night. Pt has had inpatient psychiatric tx one time previously at [facility] in 2007. She has no outpatient psychiatric providers. Her PCP, Brittni Sigala, prescribes her medications. Pt is willing to sign herself in for inpatient treatment at this time. Patient denies manic symptoms but does get irritable with coworkers and her reaction makes them think she's "snotty". She did admit to talking Lunesta plus 100 mg Benadryl on a nightly basis. Continues to deny anticholinergic symptoms. Past Psychiatric History Current Psychiatric Diagnosis: Depression Outpatient Services: no therapy for at least 5 years Previous Psych Admissions: of note the patient was hospitalized at [facility] in 1997 for irritable depression with plan to crash her car in the context of a relational stressor. At that time personality testing was part of stay and there was no clear bipolar diagnosis but perhaps borderline traits. Regardless she was started on Depakote and Wellbutrin and referred to Dr. House for outpatient follow up. Do You Have Access To A Gun?: No (reports locked in a cabinet and doesn't access) History of Previous Suicide Attempt: No Past Medication Trials: Depakote, Wellbutrin, Zoloft, Prozac, likely others by PCP Allergies Allergy/AdvReac Type Severity Reaction Status Date / Time No Known Allergies Allergy Verified 01/16/21 08:25 Home Medications Medication Instructions Recorded Confirmed Type eszopiclone 2 mg tablet (Lunesta) 2 mg PO HS PRN Insomnia 01/16/21 12/27/21 History glimepiride 4 mg tablet 4 mg PO DAILY 01/16/21 12/26/21 History lisinopril 10 mg tablet 10 mg PO DAILY 01/16/21 12/26/21 History metformin 1,000 mg tablet 1,000 mg PO BID 01/16/21 12/26/21 History pantoprazole 40 mg tablet,delayed 40 mg PO DAILY 12/26/21 12/26/21 History release paroxetine HCl 40 mg tablet 40 mg PO DAILY 12/26/21 12/26/21 History semaglutide 1 mg/dose (4 mg/3 mL) 1 mg subcut WK 12/27/21 12/27/21 History subcutaneous pen injector (Ozempic) simvastatin 40 mg tablet 40 mg PO HS 12/27/21 12/27/21 History Family History Family History of: Doesn't Know (but previously reported brother with depression and mom possibly bipolar) Alcohol History Hx of Alcohol Use Over the Past 12 Months: Yes (occasionally socially) AUDIT Total Score: 1 Smoking Use Have You Smoked or Used Tobacco Products in the Last 30 Days: No Smoking Status: Never smoker Substance History Hx of Prescription Med Misuse Over the Past 12 Months: No Hx of Over the Counter Med Misuse Over the Past 12 Months: No Hx of Inhalent Misuse Over the Past 12 Months: No Hx of Organic Substance Use Over the Past 12 Months: No Hx of Illegal Substances/Street Drug Use Over Past 12 Months: No Problems as a Result of Past Substance Use: None Identified Personal History Living Arrangements: Home Childhood: 3 brothers Highest Grade Completed: College 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[employer]) Marital Status: (2nd marriage ) Number Of Children: 1 son, 2 bio daughters, 1 step daughter Beliefs That Will Affect Care: None Current Legal Problems: No Hx Legal Problems: No Psychological Trauma History Comment: mother when she was a teenager of liver failure from scleroderma Patient History Medical History Acute headache Anxiety Depression GERD (gastroesophageal reflux disease) Hypercholesteremia Type II diabetes mellitus Family History Denies family history of Ovarian cancer Breast cancer Colorectal cancer Social History Smoking Status: Never smoker Preferred Language: Occitan Communication Ability: Effective Ad Taker Required: No Beliefs That Will Affect Care: None Feels Safe at Home: Yes Assistive Devices: Glasses Review of Systems Review of Systems: All systems reviewed & are unremarkable except as noted in HPI & below Physical Exam Psychiatric: Orientation: alert and oriented x 3 Apperance: appropriately dressed and appropriately groomed Eye Contact: good eye contact Motor Behavior: no abnormal motor movements Speech: normal rate/rhythm/volume of speech Affect: + depressed affect Mood: + depressed mood Thought Process: goal directed thought process Thought Content: reality based without delusions Suicidal Thoughts: denies suicidal intent (unable to safety plan); + reports suicidal thoughts (upset plan didn't work) and + reports suicidal plan (would OD again, can't do so on unit) Homicidal Thoughts: denies homicidal thoughts Hallucinations: no auditory hallucinations and no visual hallucinations Cognition: attention grossly intact and language grossly intact Estimated Intelligence: consistent with education level Insight: + limited insight Judgement: + limited judgement Vital Signs (Past 24 Hours): Last Vital Signs Temp 36.7 C 12/27/21 06:30 Pulse 112 H 12/27/21 06:32 Resp 16 12/27/21 06:30 BP 129/82 12/27/21 06:32 Pulse Ox 99 12/27/21 06:30 O2 Del Method 12/27/21 06:30 Exam Statement: A physical exam was performed in the ED by Dr. Albarran for the purposes of medical clearance. I accept that physical as correct and adequate for the purposes of the inpatient physical exam. Results & Data ([facility]) Laboratory Results Laboratory Results - last 24 hr 12/26/21 12/26/21 12/26/21 09:57 09:57 09:57 WBC 8.85 RBC 4.72 Hgb 13.4 Hct 40.1 MCV 85.0 MCH 28.4 MCHC 33.4 RDW Std Deviation 38.2 RDW Coeff of Tru 12.4 Plt Count 174 MPV 9.5 Immature Gran % (Auto) 0.3 Neut % (Auto) 74.9 Lymph % (Auto) 16.3 [place] % (Auto) 7.9 Eos % (Auto) 0.3 Baso % (Auto) 0.3 Neut # (Auto) 6.62 H Lymph # (Auto) 1.44 [place] # (Auto) 0.70 Eos # (Auto) 0.03 Baso # (Auto) 0.03 Immature Gran # (Auto) 0.03 H Sodium 135 L Potassium 4.0 Chloride 100 Carbon Dioxide 27 Anion Gap 8 BUN 16 Creatinine 0.88 Est Cr Clr Drug Dosing Not Reportable Est GFR ( Amer) 83.9 Est GFR (Non-Af Amer) 72.4 BUN/Creatinine Ratio 18.2 Glucose 228 H POC Glucose Calcium 9.3 Total Bilirubin 0.4 AST 15 ALT 18 Alkaline Phosphatase 93 Total Protein 7.3 Albumin 4.0 Globulin 3.3 Albumin/Globulin Ratio 1.2 TSH Salicylates < 3.0 L Urine Opiates Screen Ur Methadone, Qual Acetaminophen < 3 L Urine Barbiturates Ur Phencyclidine (PCP) U Amphetamin/Meth Scrn MDMA (Ecstasy) Screen U Benzodiazepines Scrn Ur Cocaine Metabolite U Marijuana (THC) Screen Ethyl Alcohol mg/dL SARS-CoV-2, RNA, NAAT 12/26/21 12/26/21 12/26/21 09:57 09:57 Unknown WBC RBC Hgb Hct MCV MCH MCHC RDW Std Deviation RDW Coeff of Tru Plt Count MPV Immature Gran % (Auto) Neut % (Auto) Lymph % (Auto) [place] % (Auto) Eos % (Auto) Baso % (Auto) Neut # (Auto) Lymph # (Auto) [place] # (Auto) Eos # (Auto) Baso # (Auto) Immature Gran # (Auto) Sodium Potassium Chloride Carbon Dioxide Anion Gap BUN Creatinine Est Cr Clr Drug Dosing Est GFR ( Amer) Est GFR (Non-Af Amer) BUN/Creatinine Ratio Glucose POC Glucose Calcium Total Bilirubin AST ALT Alkaline Phosphatase Total Protein Albumin Globulin Albumin/Globulin Ratio TSH 0.825 Salicylates Urine Opiates Screen Neg Ur Methadone, Qual Neg Acetaminophen Urine Barbiturates Neg Ur Phencyclidine (PCP) Neg U Amphetamin/Meth Scrn Neg MDMA (Ecstasy) Screen Neg U Benzodiazepines Scrn Neg Ur Cocaine Metabolite Neg U Marijuana (THC) Screen Neg Ethyl Alcohol mg/dL < 10.0 SARS-CoV-2, RNA, NAAT 12/26/21 12/27/21 Unknown 06:51 WBC RBC Hgb Hct MCV MCH MCHC RDW Std Deviation RDW Coeff of Tru Plt Count MPV Immature Gran % (Auto) Neut % (Auto) Lymph % (Auto) [place] % (Auto) Eos % (Auto) Baso % (Auto) Neut # (Auto) Lymph # (Auto) [place] # (Auto) Eos # (Auto) Baso # (Auto) Immature Gran # (Auto) Sodium Potassium Chloride Carbon Dioxide Anion Gap BUN Creatinine Est Cr Clr Drug Dosing Est GFR ( Amer) Est GFR (Non-Af Amer) BUN/Creatinine Ratio Glucose POC Glucose 102 H Calcium Total Bilirubin AST ALT Alkaline Phosphatase Total Protein Albumin Globulin Albumin/Globulin Ratio TSH Salicylates Urine Opiates Screen Ur Methadone, Qual Acetaminophen Urine Barbiturates Ur Phencyclidine (PCP) U Amphetamin/Meth Scrn MDMA (Ecstasy) Screen U Benzodiazepines Scrn Ur Cocaine Metabolite U Marijuana (THC) Screen Ethyl Alcohol mg/dL SARS-CoV-2, RNA, NAAT NEGATIVE Current Inpatient Medications Current Inpatient Medications: Current Inpatient Medications Acetaminophen (Acetaminophen 325 Mg Tab) 650 mg PO Q4H PRN PRN Reason: Headache or Minor Fever Stop: 01/25/22 18:21 Al Hydrox/Mg Hydrox/Simethicone (Aluminum/Magnesium Susp 30 Ml Udc) 30 ml PO Q4H PRN PRN Reason: GI Upset Stop: 01/25/22 18:21 Bismuth Subsalicylate (Bismuth Subsalicylate Liqd 236 Ml) 15 ml PO PRN PRN PRN Reason: Loose Stool Stop: 01/25/22 18:21 Hydroxyzine HCl (Hydroxyzine Hcl 25 Mg Tab) 50 mg PO HSZ PRN PRN Reason: Insomnia Stop: 01/25/22 18:21 Hydroxyzine HCl (Hydroxyzine Hcl 25 Mg Tab) 25 mg PO Q4H PRN PRN Reason: Anxiety Stop: 01/25/22 18:21 Magnesium Hydroxide (Magnesium Hydroxide Susp 30 Ml Udc) 30 ml PO DAILY PRN PRN Reason: Constipation Stop: 01/25/22 18:21 Sodium Chloride (Sodium Chloride 0.65% Na Soln 45 Ml ([place])) 1 - 2 sprays NA PRN PRN PRN Reason: Nasal Dryness/Congestion Stop: 01/25/22 18:21
[2021-12-27] MEDS: metFORMIN HCL 500 MG TAB PO SCH ×2 (12:40→17:58)
[2021-12-27] MEDS: PARoxetine HCL 20 MG TAB PO SCH (21:01)
[2021-12-27] MEDS: GLIMEPIRIDE 2 MG TAB PO SCH (21:01)
[2021-12-27] MEDS: SIMVASTATIN 5 MG TAB PO SCH (21:01)
[2021-12-27] MEDS: hydrOXYzine HCl 25 MG TAB PO PRN (21:01)
[2021-12-27] MEDS: lisinopril 10 MG TAB PO SCH (21:01)
[2021-12-27] MEDS: PANTOprazole 40 MG TAB PO SCH (21:15)
[2021-12-28] MEDS: hydrOXYzine HCl 25 MG TAB PO PRN (02:52)
--- NOTE | 2021-12-28 08:57 | Psychiatric Progress Note ---
Date of Service December 28, 2021 Impression / Recommendations Impression 56 yo female s/p Lunesta and Benadryl overdose, clearly planned suicide attempt with phase of life issues and increased irritability and stress at work. There is a suspected family history of mood disorder. Diagnostically consistent with major depressive disorder. The patient is deemed unstable and requires psychiatric hospitalization for diagnostic clarification, safety and stabilization, medication management and development of further coping skills. MNPR due to periods of irritability and difficulty tolerating peers. 12/28/21: Ongoing depression with ambivalence about surviving attempt. Discussed medication treatment options in detail. Discussed risks, benefits and alternatives. Patient would like to start and consented to mirtazapine for sleep, depression, anxiety. Reviewed side effects including but not limited to: sedation, increased appetite, dizziness. (1) Depression: (2) Suicide attempt by multiple drug overdose: Plan 12/28/21: Start mirtazapine 7.5mg qhs. Continue Paxil 40mg qd. Use CAMS approach for identifying driving factors/modifiable risk factors/treatment approaches for suicidality. 12/27/21: The patient was admitted to the [facility] ([facility] mental health unit) on q15 min checks (behavioral with suicide precautions) for safety. The patient will participate in group, recreational, and milieu therapies and will be offered additional individual and family sessions as clinically appropriate. 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 Needs: cognitive therapy, possible work accommodations Suicide Risk Level Suicide Risk Level: High-Moderate (q15 min suicide checks) (Suicide attempt prior to admission and remains regretful about surviving but participating in groups and agrees to alert nursing should she feel unable to remain safe or should she develop active SI with plan or intent for the unit ) Risk Factors Assessment : Yes Do You Have Access To A Gun?: No (reports locked in a cabinet and doesn't access) Mental Health Diagnoses: Yes Substance Use Disorders: No Previous Psychiatric Hospitalization: Yes Protective Factors Assessment : Yes Employed: Yes ([employer]) Supportive Family: Yes Interval History Identifying Information ARASH SOUZA is a 56-year-old F who currently lives in [place] who was admitted on 12/26/21 18:22 on a 201 voluntary commitment s/p suicide attempt. Chief Complaint "I'm still not sure about being alive, to make that decision you kind of have to wrap your head around what you're going to do". Review of Systems Sleep Information Total Hours of Sleep: 6.5 Meal Information Percent Meal Consumed - Breakfast: 100 Percent Meal Consumed - Lunch: 50 Percent Meal Consumed - Dinner: 75 Subjective Subjective Patient was seen & assessed and interval progress reviewed with treatment team nursing and social work. Requested prn Vistaril last night for insomnia. Today continues to have ambivalence about surviving attempt but denies current SI. Describes how chronic intermittent SI has become "like an automatic" thought for her at times but also sad that her attempt was so upsetting for her children. Likes Paxil but willing to consider an additional medication if it could help with mood and sleep. Physical Exam Psychiatric Orientation: alert and oriented x 3 Apperance: appropriately dressed and appropriately groomed Eye Contact: good eye contact Motor Behavior: no abnormal motor movements Speech: normal rate/rhythm/volume of speech Affect: + depressed affect Mood: + depressed mood Thought Process: goal directed thought process Thought Content: reality based without delusions Suicidal Thoughts: denies suicidal intent; + reports suicidal thoughts (upset plan didn't work) and + reports suicidal plan (notes possibilty of future plan like jumping from a mountain) Homicidal Thoughts: denies homicidal thoughts Hallucinations: no auditory hallucinations and no visual hallucinations Cognition: attention grossly intact and language grossly intact Estimated Intelligence: consistent with education level Insight: + limited insight Judgement: + limited judgement Vital Signs (Past 24 Hours) Last Vital Signs Temp 36.8 C 12/28/21 06:00 Pulse 82 12/28/21 06:35 Resp 18 12/28/21 06:00 BP 130/83 12/28/21 06:35 Pulse Ox 99 12/27/21 06:30 O2 Del Method 12/27/21 06:30 Results & Data ([facility]) Laboratory Results Laboratory Results - last 24 hr 12/28/21 06:48 POC Glucose 135 H Current Inpatient Medications Current Inpatient Medications: Current Inpatient Medications Acetaminophen (Acetaminophen 325 Mg Tab) 650 mg PO Q4H PRN PRN Reason: Headache or Minor Fever Stop: 01/25/22 18:21 Al Hydrox/Mg Hydrox/Simethicone (Aluminum/Magnesium Susp 30 Ml Udc) 30 ml PO Q4H PRN PRN Reason: GI Upset Stop: 01/25/22 18:21 Bismuth Subsalicylate (Bismuth Subsalicylate Liqd 236 Ml) 15 ml PO PRN PRN PRN Reason: Loose Stool Stop: 01/25/22 18:21 Glimepiride (Glimepiride 2 Mg Tab) 4 mg PO HS VICTORIA Stop: 01/26/22 21:59 Last Admin: 12/27/21 21:01 Dose: 4 mg Hydroxyzine HCl (Hydroxyzine Hcl 25 Mg Tab) 50 mg PO HSZ PRN PRN Reason: Insomnia Stop: 01/25/22 18:21 Last Admin: 12/28/21 02:52 Dose: 50 mg Hydroxyzine HCl (Hydroxyzine Hcl 25 Mg Tab) 25 mg PO Q4H PRN PRN Reason: Anxiety Stop: 01/25/22 18:21 Lisinopril (Lisinopril 10 Mg Tab) 10 mg PO HS VICTORIA Stop: 01/26/22 21:59 Last Admin: 12/27/21 21:01 Dose: 10 mg Magnesium Hydroxide (Magnesium Hydroxide Susp 30 Ml Udc) 30 ml PO DAILY PRN PRN Reason: Constipation Stop: 01/25/22 18:21 Metformin HCl (Metformin Hcl 500 Mg Tab) 1,000 mg PO BID@1200,1700 VICTORIA Stop: 01/26/22 11:59 Last Admin: 12/27/21 17:58 Dose: 1,000 mg Miscellaneous (Semiglutide 1 Mg-Order Awaiting Action) 1 each N/A QS VICTORIA Stop: 01/26/22 15:59 Last Admin: 12/28/21 07:24 Dose: Not Given Pantoprazole Sodium (Pantoprazole 40 Mg Tab) 40 mg PO HS VICTORIA Stop: 01/26/22 21:59 Last Admin: 12/27/21 21:15 Dose: 40 mg Paroxetine HCl (Paroxetine Hcl 20 Mg Tab) 40 mg PO HS VICTORIA Stop: 01/26/22 21:59 Last Admin: 12/27/21 21:01 Dose: 40 mg Simvastatin (Simvastatin 5 Mg Tab) 5 mg PO HS VICTORIA Stop: 01/26/22 21:59 Last Admin: 12/27/21 21:01 Dose: 5 mg Sodium Chloride (Sodium Chloride 0.65% Na Soln 45 Ml ([place])) 1 - 2 sprays NA PRN PRN PRN Reason: Nasal Dryness/Congestion Stop: 01/25/22 18:21 Mental Health & Subst Abuse Tx Therapist Name of Therapist: None Machine Puller Name of Machine Puller: None Post Discharge Appointments Primary Care Physician Name Of Family Doctor: Brittni PATHAK (1) Suicide attempt by multiple drug overdose Encounter type: initial encounter Qualified Code(s): T50.912A - Poisoning by multiple unspecified drugs, medicaments and biological substances, intentional self-harm, initial encounter
[2021-12-28] MEDS: metFORMIN HCL 500 MG TAB PO SCH ×2 (13:02→17:40)
[2021-12-28] MEDS: lisinopril 10 MG TAB PO SCH (20:58)
[2021-12-28] MEDS: SIMVASTATIN 5 MG TAB PO SCH (20:58)
[2021-12-28] MEDS: GLIMEPIRIDE 2 MG TAB PO SCH (20:58)
[2021-12-28] MEDS: PARoxetine HCL 20 MG TAB PO SCH (20:59)
[2021-12-28] MEDS: PANTOprazole 40 MG TAB PO SCH (20:59)
--- NOTE | 2021-12-29 09:02 | Psychiatric Progress Note ---
Date of Service December 29, 2021 Impression / Recommendations Impression 56 yo female s/p Lunesta and Benadryl overdose, clearly planned suicide attempt with phase of life issues and increased irritability and stress at work. There is a suspected family history of mood disorder. Diagnostically consistent with major depressive disorder. The patient is deemed unstable and requires psychiatric hospitalization for diagnostic clarification, safety and stabilization, medication management and development of further coping skills. MNPR due to periods of irritability and difficulty tolerating peers. 12/29/21: Ongoing depression but feeling less hopeless. Will try mirtazapine tonight to help with sleep and anxiety. (1) Depression: (2) Suicide attempt by multiple drug overdose: Plan 12/29/21: Continue with current medications. Mirtazapine 7.5mg qhs start tonight. 12/28/21: Continue Paxil 40mg qd. Use CAMS approach for identifying driving factors/modifiable risk factors/treatment approaches for suicidality. 12/27/21: The patient was [facility] to [facility] ([facility] inpatient mental health unit) on q15 min checks (behavioral with suicide precautions) for safety. The patient will participate in group, recreational, and milieu therapies and will be offered additional individual and family sessions as clinically appropriate. 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, long-term employment Needs: cognitive therapy, possible work accommodations Suicide Risk Level Suicide Risk Level: High-Moderate (q15 min suicide checks) (Suicide attempt prior to admission but feels safe in the hospital, participating in groups and agrees to alert nursing should she feel unable to remain safe or should she develop active SI with plan or intent for the unit ) Risk Factors Assessment : Yes Do You Have Access To A Gun?: No (reports locked in a cabinet and doesn't access) Mental Health Diagnoses: Yes Substance Use Disorders: No Previous Psychiatric Hospitalization: Yes Protective Factors Assessment : Yes 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 Chief Complaint "I'm not feeling as hopeless". Review of Systems Sleep Information Total Hours of Sleep: 7 Meal Information Percent Meal Consumed - Breakfast: 95 Percent Meal Consumed - Lunch: 100 Percent Meal Consumed - Dinner: 25 Subjective Subjective Patient was seen & assessed and interval progress reviewed with treatment team nursing and social work. Attending groups. Went to bed early. Still depressed but opening up more. Today reviewed CAMS and how major factors leading to her suicidality is stress from work and concerns of letting people down but also struggling to set boundaries and unable to meet the excessive demands that are placed on her. Considering alternative work options as she feels unable to return to her previous job, acknowledges that suicide seems like a rash decision to leave her job but felt trapped and unable to consider alternatives at the time. Mistakenly did not order mirtazapine last night so she tried prn Vistaril but had an upset stomach and did not sleep well. Physical Exam Psychiatric Orientation: alert and oriented x 3 Apperance: appropriately dressed and appropriately groomed Eye Contact: good eye contact Motor Behavior: no abnormal motor movements Speech: normal rate/rhythm/volume of speech Affect: + depressed affect Mood: + depressed mood Thought Process: goal directed thought process Thought Content: reality based without delusions Suicidal Thoughts: denies suicidal thoughts, denies suicidal plan and denies suicidal intent Homicidal Thoughts: denies homicidal thoughts Hallucinations: no auditory hallucinations and no visual hallucinations Cognition: attention grossly intact and language grossly intact Estimated Intelligence: consistent with education level Insight: + fair insight Judgement: + limited judgement Vital Signs (Past 24 Hours) Last Vital Signs Temp 36.9 C 12/29/21 06:46 Pulse 84 12/29/21 06:48 Resp 18 12/29/21 06:46 BP 134/87 12/29/21 06:48 Pulse Ox 99 12/27/21 06:30 O2 Del Method 12/27/21 06:30 Results & Data ([facility]) Laboratory Results Laboratory Results - last 24 hr 12/29/21 06:38 POC Glucose 126 H Current Inpatient Medications Current Inpatient Medications: Current Inpatient Medications Acetaminophen (Acetaminophen 325 Mg Tab) 650 mg PO Q4H PRN PRN Reason: Headache or Minor Fever Stop: 01/25/22 18:21 Al Hydrox/Mg Hydrox/Simethicone (Aluminum/Magnesium Susp 30 Ml Udc) 30 ml PO Q4H PRN PRN Reason: GI Upset Stop: 01/25/22 18:21 Bismuth Subsalicylate (Bismuth Subsalicylate Liqd 236 Ml) 15 ml PO PRN PRN PRN Reason: Loose Stool Stop: 01/25/22 18:21 Glimepiride (Glimepiride 2 Mg Tab) 4 mg PO HS VICTORIA Stop: 01/26/22 21:59 Last Admin: 12/28/21 20:58 Dose: 4 mg Hydroxyzine HCl (Hydroxyzine Hcl 25 Mg Tab) 50 mg PO HSZ PRN PRN Reason: Insomnia Stop: 01/25/22 18:21 Last Admin: 12/28/21 02:52 Dose: 50 mg Hydroxyzine HCl (Hydroxyzine Hcl 25 Mg Tab) 25 mg PO Q4H PRN PRN Reason: Anxiety Stop: 01/25/22 18:21 Lisinopril (Lisinopril 10 Mg Tab) 10 mg PO HS VICTORIA Stop: 01/26/22 21:59 Last Admin: 12/28/21 20:58 Dose: 10 mg Magnesium Hydroxide (Magnesium Hydroxide Susp 30 Ml Udc) 30 ml PO DAILY PRN PRN Reason: Constipation Stop: 01/25/22 18:21 Metformin HCl (Metformin Hcl 500 Mg Tab) 1,000 mg PO BID@1200,1700 VICTORIA Stop: 01/26/22 11:59 Last Admin: 12/28/21 17:40 Dose: 1,000 mg Miscellaneous (Semiglutide 1 Mg-Order Awaiting Action) 1 each N/A QS VICTORIA Stop: 01/26/22 15:59 Last Admin: 12/29/21 08:49 Dose: Not Given Pantoprazole Sodium (Pantoprazole 40 Mg Tab) 40 mg PO HS VICTORIA Stop: 01/26/22 21:59 Last Admin: 12/28/21 20:59 Dose: 40 mg Paroxetine HCl (Paroxetine Hcl 20 Mg Tab) 40 mg PO HS VICTORIA Stop: 01/26/22 21:59 Last Admin: 12/28/21 20:59 Dose: 40 mg Simvastatin (Simvastatin 5 Mg Tab) 5 mg PO HS VICTORIA Stop: 01/26/22 21:59 Last Admin: 12/28/21 20:58 Dose: 5 mg Sodium Chloride (Sodium Chloride 0.65% Na Soln 45 Ml ([place])) 1 - 2 sprays NA PRN PRN PRN Reason: Nasal Dryness/Congestion Stop: 01/25/22 18:21 Mental Health & Subst Abuse Tx Therapist Name of Therapist: None Waiter/Waitress Room Service Name of Waiter/Waitress Room Service: None Post Discharge Appointments Primary Care Physician Name Of Family Doctor: Brittni PATHAK (1) Suicide attempt by multiple drug overdose Encounter type: initial encounter Qualified Code(s): T50.912A - Poisoning by multiple unspecified drugs, medicaments and biological substances, intentional self-harm, initial encounter
[2021-12-29] MEDS: metFORMIN HCL 500 MG TAB PO SCH ×2 (12:58→18:05)
[2021-12-29] MEDS ORDERED: SEMAGLUTIDE SQ SCH ×3 (13:00→16:15)
[2021-12-29] MEDS: PANTOprazole 40 MG TAB PO SCH (21:14)
[2021-12-29] MEDS: GLIMEPIRIDE 2 MG TAB PO SCH (21:14)
[2021-12-29] MEDS: PARoxetine HCL 20 MG TAB PO SCH (21:14)
[2021-12-29] MEDS: lisinopril 10 MG TAB PO SCH (21:14)
[2021-12-29] MEDS: MIRTAZAPINE TAB 15 MG TAB PO SCH (21:15)
[2021-12-29] MEDS: SIMVASTATIN 5 MG TAB PO SCH (21:15)
--- NOTE | 2021-12-30 08:57 | Psychiatric Progress Note ---
Date of Service December 30, 2021 Impression / Recommendations Impression 56 yo female s/p Lunesta and Benadryl overdose, clearly planned suicide attempt with phase of life issues and increased irritability and stress at work. There is a suspected family history of mood disorder. Diagnostically consistent with major depressive disorder. The patient is deemed unstable and requires psychiatric hospitalization for diagnostic clarification, safety and stabilization, medication management and development of further coping skills. MNPR due to periods of irritability and difficulty tolerating peers. 12/30/21: Ongoing depression but making progress, slept better with mirtazapine trial last night and wants to continue this. Spent 20 minutes completing FMLA paperwork for her depression and suicide attempt leading to needing to miss work and delay her return. (1) MDD (major depressive disorder), recurrent episode, severe: (2) Depression: (3) Suicide attempt by multiple drug overdose: Plan 12/30/21: Continue current medications and tx plan. 12/29/21: Continue with current medications. Mirtazapine 7.5mg qhs start tonight. 12/28/21: Continue Paxil 40mg qd. Use CAMS approach for identifying driving factors/modifiable risk factors/treatment approaches for suicidality. 12/27/21: The patient was [facility] ([facility] inpatient mental health unit) on q15 min checks (behavioral with suicide precautions) for safety. The patient will participate in group, recreational, and milieu therapies and will be offered additional individual and family sessions as clinically appropriate. 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 Needs: cognitive therapy, possible work accommodations Suicide Risk Level Suicide Risk Level: Moderate (q15 min suicide checks) (Suicide attempt prior to admission but now denying SI, feels safe in the hospital, participating in groups and agrees to alert nursing should she feel unable to remain safe or should she develop active SI with plan or intent for the unit ) Risk Factors Assessment : Yes Do You Have Access To A Gun?: No (reports locked in a cabinet and doesn't access) Mental Health Diagnoses: Yes Substance Use Disorders: No Previous Psychiatric Hospitalization: Yes Protective Factors Assessment : Yes 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 Chief Complaint "I had a bit of an epiphany to start changing things instead of just coping". Review of Systems Sleep Information Total Hours of Sleep: 6 Meal Information Percent Meal Consumed - Breakfast: 90 Percent Meal Consumed - Lunch: 100 Percent Meal Consumed - Dinner: 50 Subjective Subjective Patient was seen & assessed and interval progress reviewed with treatment team nursing and social work. Had her family meeting. Mood is slowly improving but still with depression and anxiety particularly related to work stressors. Glad that she's opened up to her family about her sucidality and depression. Slept well, "the best in a long time" with mirtazapine addition and no side effects. Physical Exam Psychiatric Orientation: alert and oriented x 3 Apperance: appropriately dressed and appropriately groomed Eye Contact: good eye contact Motor Behavior: no abnormal motor movements Speech: normal rate/rhythm/volume of speech Affect: + depressed affect Mood: + depressed mood Thought Process: goal directed thought process Thought Content: reality based without delusions Suicidal Thoughts: denies suicidal thoughts, denies suicidal plan and denies suicidal intent Homicidal Thoughts: denies homicidal thoughts Hallucinations: no auditory hallucinations and no visual hallucinations Cognition: attention grossly intact and language grossly intact Estimated Intelligence: consistent with education level Insight: + fair insight Judgement: + fair judgement Vital Signs (Past 24 Hours) Last Vital Signs Temp 36.7 C 12/30/21 06:42 Pulse 90 12/30/21 06:43 Resp 16 12/30/21 06:42 BP 124/82 12/30/21 06:43 Pulse Ox 99 12/27/21 06:30 O2 Del Method 12/27/21 06:30 Results & Data ([facility]) Laboratory Results Laboratory Results - last 24 hr 12/30/21 06:47 POC Glucose 130 H Current Inpatient Medications Current Inpatient Medications: Current Inpatient Medications Acetaminophen (Acetaminophen 325 Mg Tab) 650 mg PO Q4H PRN PRN Reason: Headache or Minor Fever Stop: 01/25/22 18:21 Al Hydrox/Mg Hydrox/Simethicone (Aluminum/Magnesium Susp 30 Ml Udc) 30 ml PO Q4H PRN PRN Reason: GI Upset Stop: 01/25/22 18:21 Bismuth Subsalicylate (Bismuth Subsalicylate Liqd 236 Ml) 15 ml PO PRN PRN PRN Reason: Loose Stool Stop: 01/25/22 18:21 Glimepiride (Glimepiride 2 Mg Tab) 4 mg PO HS VICTORIA Stop: 01/26/22 21:59 Last Admin: 12/29/21 21:14 Dose: 4 mg Hydroxyzine HCl (Hydroxyzine Hcl 25 Mg Tab) 50 mg PO HSZ PRN PRN Reason: Insomnia Stop: 01/25/22 18:21 Last Admin: 12/28/21 02:52 Dose: 50 mg Hydroxyzine HCl (Hydroxyzine Hcl 25 Mg Tab) 25 mg PO Q4H PRN PRN Reason: Anxiety Stop: 01/25/22 18:21 Lisinopril (Lisinopril 10 Mg Tab) 10 mg PO HS VICTORIA Stop: 01/26/22 21:59 Last Admin: 12/29/21 21:14 Dose: 10 mg Magnesium Hydroxide (Magnesium Hydroxide Susp 30 Ml Udc) 30 ml PO DAILY PRN PRN Reason: Constipation Stop: 01/25/22 18:21 Metformin HCl (Metformin Hcl 500 Mg Tab) 1,000 mg PO BID@1200,1700 VICTORIA Stop: 01/26/22 11:59 Last Admin: 12/29/21 18:05 Dose: 1,000 mg Mirtazapine (Mirtazapine Tab 15 Mg Tab) 7.5 mg PO HS VICTORIA Stop: 01/28/22 21:59 Last Admin: 12/29/21 21:15 Dose: 7.5 mg Pantoprazole Sodium (Pantoprazole 40 Mg Tab) 40 mg PO HS VICTORIA Stop: 01/26/22 21:59 Last Admin: 12/29/21 21:14 Dose: 40 mg Paroxetine HCl (Paroxetine Hcl 20 Mg Tab) 40 mg PO HS VICTORIA Stop: 01/26/22 21:59 Last Admin: 12/29/21 21:14 Dose: 40 mg Semaglutide (Semaglutide Inj (Pom)) 1 each SQ Melendez@1615 VICTORIA Stop: 01/28/22 16:14 Last Admin: 12/29/21 16:19 Dose: 1 each Simvastatin (Simvastatin 5 Mg Tab) 5 mg PO HS VICTORIA Stop: 01/26/22 21:59 Last Admin: 12/29/21 21:15 Dose: 5 mg Sodium Chloride (Sodium Chloride 0.65% Na Soln 45 Ml ([place])) 1 - 2 sprays NA PRN PRN PRN Reason: Nasal Dryness/Congestion Stop: 01/25/22 18:21 Mental Health & Subst Abuse Tx Therapist Name of Therapist: None Jig Boring Machine Operator For Metal Name of Jig Boring Machine Operator For Metal: None Post Discharge Appointments Primary Care Physician Name Of Family Doctor: Brittni PATHAK (1) Suicide attempt by multiple drug overdose Encounter type: initial encounter Qualified Code(s): T50.912A - Poisoning by multiple unspecified drugs, medicaments and biological substances, intentional self-harm, initial encounter
[2021-12-30] MEDS: metFORMIN HCL 500 MG TAB PO SCH ×2 (13:01→17:30)
[2021-12-30] MEDS: GLIMEPIRIDE 2 MG TAB PO SCH (21:52)
[2021-12-30] MEDS: lisinopril 10 MG TAB PO SCH (21:53)
[2021-12-30] MEDS: MIRTAZAPINE TAB 15 MG TAB PO SCH (21:54)
[2021-12-30] MEDS: PARoxetine HCL 20 MG TAB PO SCH (21:55)
[2021-12-30] MEDS: PANTOprazole 40 MG TAB PO SCH (21:55)
[2021-12-30] MEDS: SIMVASTATIN 5 MG TAB PO SCH (21:56)
[2021-12-31] MEDS: metFORMIN HCL 500 MG TAB PO SCH ×2 (13:00→17:06)
--- NOTE | 2021-12-31 13:10 | Psychiatric Progress Note ---
Date of Service December 31, 2021 Impression / Recommendations Impression 56 yo female s/p Lunesta and Benadryl overdose, clearly planned suicide attempt with phase of life issues and increased irritability and stress at work. There is a suspected family history of mood disorder. Diagnostically consistent with major depressive disorder. The patient is deemed unstable and requires psychiatric hospitalization for diagnostic clarification, safety and stabilization, medication management and development of further coping skills. 12/31/21: Mood improving, denying SI. Sleep and appetite improved with mirtazapine. Continues to find Paxil helpful. (1) MDD (major depressive disorder), recurrent episode, severe: (2) Depression: (3) Suicide attempt by multiple drug overdose: Plan 12/31/21: Continue current medications and tx plan. 12/30/21: Continue current medications and tx plan. 12/29/21: Continue with current medications. Mirtazapine 7.5mg qhs start tonight. 12/28/21: Continue Paxil 40mg qd. Use CAMS approach for identifying driving factors/modifiable risk factors/treatment approaches for suicidality. 12/27/21: The patient was admitted to the [facility] [place] [place] on q15 min checks (behavioral with suicide precautions) for safety. The patient will participate in group, recreational, and milieu therapies and will be offered additional individual and family sessions as clinically appropriate. 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, [employer] employment Needs: cognitive therapy, possible work accommodations Suicide Risk Level Suicide Risk Level: Moderate (q15 min suicide checks) (Suicide attempt prior to admission but now denying SI, feels safe in the hospital, participating in groups and agrees to alert nursing should she feel unable to remain safe or should she develop active SI with plan or intent for the unit ) Risk Factors Assessment : Yes Do You Have Access To A Gun?: No (reports locked in a cabinet and doesn't access) Mental Health Diagnoses: Yes Substance Use Disorders: No Previous Psychiatric Hospitalization: Yes Protective Factors Assessment : Yes 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 Chief Complaint "I'm doing well". Review of Systems Sleep Information Total Hours of Sleep: 7 Meal Information Percent Meal Consumed - Breakfast: 90 Percent Meal Consumed - Lunch: 100 Percent Meal Consumed - Dinner: 80 Subjective Subjective Patient was seen & assessed and interval progress reviewed with treatment team nursing and social work. Mood improving, denies SI. No side effects from mirtazapine, likes that it continues to help with sleep. Having dreams but not bothered by this, likes she is sleeping more deeply. Appetite improving and denies nausea. Enjoyed the walking group. Thinking ahead about future camping trip she hopes to take next month. Physical Exam Psychiatric Orientation: alert and oriented x 3 Apperance: appropriately dressed and appropriately groomed Eye Contact: good eye contact Motor Behavior: no abnormal motor movements Speech: normal rate/rhythm/volume of speech Affect: euthymic affect Mood: + depressed mood; no anxious mood Thought Process: goal directed thought process Thought Content: reality based without delusions Suicidal Thoughts: denies suicidal thoughts, denies suicidal plan and denies suicidal intent Homicidal Thoughts: denies homicidal thoughts Hallucinations: no auditory hallucinations and no visual hallucinations Cognition: attention grossly intact and language grossly intact Estimated Intelligence: consistent with education level Insight: + fair insight Judgement: + fair judgement Vital Signs (Past 24 Hours) Last Vital Signs Temp 36.9 C 12/31/21 06:44 Pulse 80 12/31/21 06:45 Resp 16 12/31/21 06:44 BP 143/90 H 12/31/21 06:45 Pulse Ox 99 12/27/21 06:30 O2 Del Method 12/27/21 06:30 Results & Data ([facility]) Laboratory Results Laboratory Results - last 24 hr 12/31/21 06:33 POC Glucose 97 Current Inpatient Medications Current Inpatient Medications: Current Inpatient Medications Acetaminophen (Acetaminophen 325 Mg Tab) 650 mg PO Q4H PRN PRN Reason: Headache or Minor Fever Stop: 01/25/22 18:21 Al Hydrox/Mg Hydrox/Simethicone (Aluminum/Magnesium Susp 30 Ml Udc) 30 ml PO Q4H PRN PRN Reason: GI Upset Stop: 01/25/22 18:21 Bismuth Subsalicylate (Bismuth Subsalicylate Liqd 236 Ml) 15 ml PO PRN PRN PRN Reason: Loose Stool Stop: 01/25/22 18:21 Glimepiride (Glimepiride 2 Mg Tab) 4 mg PO HS VICTORIA Stop: 01/26/22 21:59 Last Admin: 12/30/21 21:52 Dose: 4 mg Hydroxyzine HCl (Hydroxyzine Hcl 25 Mg Tab) 50 mg PO HSZ PRN PRN Reason: Insomnia Stop: 01/25/22 18:21 Last Admin: 12/28/21 02:52 Dose: 50 mg Hydroxyzine HCl (Hydroxyzine Hcl 25 Mg Tab) 25 mg PO Q4H PRN PRN Reason: Anxiety Stop: 01/25/22 18:21 Lisinopril (Lisinopril 10 Mg Tab) 10 mg PO HS VICTORIA Stop: 01/26/22 21:59 Last Admin: 12/30/21 21:53 Dose: 10 mg Magnesium Hydroxide (Magnesium Hydroxide Susp 30 Ml Udc) 30 ml PO DAILY PRN PRN Reason: Constipation Stop: 01/25/22 18:21 Metformin HCl (Metformin Hcl 500 Mg Tab) 1,000 mg PO BID@1200,1700 VICTORIA Stop: 01/26/22 11:59 Last Admin: 12/31/21 13:00 Dose: 1,000 mg Mirtazapine (Mirtazapine Tab 15 Mg Tab) 7.5 mg PO HS VICTORIA Stop: 01/28/22 21:59 Last Admin: 12/30/21 21:54 Dose: 7.5 mg Pantoprazole Sodium (Pantoprazole 40 Mg Tab) 40 mg PO HS VICTORIA Stop: 01/26/22 21:59 Last Admin: 12/30/21 21:55 Dose: 40 mg Paroxetine HCl (Paroxetine Hcl 20 Mg Tab) 40 mg PO HS VICTORIA Stop: 01/26/22 21:59 Last Admin: 12/30/21 21:55 Dose: 40 mg Semaglutide (Semaglutide Inj (Pom)) 1 each SQ Melendez@1615 VICTORIA Stop: 01/28/22 16:14 Last Admin: 12/29/21 16:19 Dose: 1 each Simvastatin (Simvastatin 5 Mg Tab) 5 mg PO HS VICTORIA Stop: 01/26/22 21:59 Last Admin: 12/30/21 21:56 Dose: 5 mg Sodium Chloride (Sodium Chloride 0.65% Na Soln 45 Ml ([place])) 1 - 2 sprays NA PRN PRN PRN Reason: Nasal Dryness/Congestion Stop: 01/25/22 18:21 Mental Health & Subst Abuse Tx Psychiatrist Name of Psychiatrist: Mary Anne Torrez Psychiatrist's Date of Appointment with Psychiatrist: 01/13/22 Time of Appointment with Psychiatrist: 10:15 AM Psychiatric Appointment Comment: [address] [facility], [place], [place] Therapist Name of Therapist: Mabel Dominguez Therapist's Date of Therapist Appointment: 01/28/22 Time of Therapist Appointment: 10:30am Therapy Appointment Comment: [address], [place], [place] Forestry And Wildlife Manager Name of Forestry And Wildlife Manager: None Post Discharge Appointments Primary Care Physician Name Of Family Doctor: Brittni PATHAK Provider Appointment Comment: Please follow-up with your PCP as needed. Contact Information Discharge Discharge Address: [address] [place] [address] (1) Suicide attempt by multiple drug overdose Encounter type: initial encounter Qualified Code(s): T50.912A - Poisoning by multiple unspecified drugs, medicaments and biological substances, intentional self-harm, initial encounter
[2021-12-31] MEDS: GLIMEPIRIDE 2 MG TAB PO SCH (21:13)
[2021-12-31] MEDS: lisinopril 10 MG TAB PO SCH (21:13)
[2021-12-31] MEDS: MIRTAZAPINE TAB 15 MG TAB PO SCH (21:14)
[2021-12-31] MEDS: PARoxetine HCL 20 MG TAB PO SCH (21:15)
[2021-12-31] MEDS: SIMVASTATIN 5 MG TAB PO SCH (21:15)
[2021-12-31] MEDS: PANTOprazole 40 MG TAB PO SCH (21:15)
--- NOTE | 2022-01-01 09:42 | Discharge Summary ---
Date of Service January 01, 2022 History of Present Illness Ms. Pleitez reports intermittent SI for several weeks/months, increasing dysthymia since the pandemic. She only feels herself when she is on a solitary vacation (camped at the beach in July) or working on home improvement projects, like replacing helen. She feels reactive to peers at work and dreads meetings and the 1 day a week she is required to go into the office. She cannot retire for another 18 months. She did try to take some graduate classes and one course wasn't as expected. She had a negative interaction with a professor via email and dropped out. She used this as an example of all of nothing thinking and how doesn't see much point to move on. She apparently waited to take the OD until her 23-year-old son was away from the home. She confirmed the history provided in the ED. as per ED CM: Pt reports that for one week she has been planning a suicide attempt by overdose followed by hanging. She chose last night to implement the plan because one of her daughters is out of town and the other was busy with her children. Her son lives with her and her and he was also out last night. She took 24 Lunesta and 16 benedryl but fell asleep. (She has been cleared by Poison Control). Her had difficulty waking her this morning, which is very unusual. When he was able to get her awake she told him that she had taken the pills and he brought her to the ER. Pt has a long hx of depression but denies prior SA. She states that a few months ago she had a plan to go into the awad and hang herself. She reports that the reason she didnt follow through is because she was afraid it wouldnt work and she would end up worse than she is now. She reports her main stressor is her job. 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 She has recently interviewed for other jobs and did not get them. This added to her depression. She reports generalized anxiety of 8 out of 10. She states she is in a constant state of fight or flight at her job. She denies D&A use and does not smoke. She has no hx of trauma or abuse. She states that her sleep is ok, sleeping approx. 6 hrs per night. Pt has had inpatient psychiatric tx one time previously at [facility] in 2007. She has no outpatient psychiatric providers. Her PCP, Brittni Sigala, prescribes her medications. Pt is willing to sign herself in for inpatient treatment at this time. Patient denies manic symptoms but does get irritable with coworkers and her reaction makes them think she's "snotty". She did admit to talking Lunesta plus 100 mg Benadryl on a nightly basis. Continues to deny anticholinergic symptoms. Physical Exam Vital Signs (Past 24 Hours) Last Vital Signs Temp 36.7 C 01/01/22 06:00 Pulse 79 01/01/22 06:00 Resp 18 01/01/22 06:00 BP 146/87 H 01/01/22 06:49 Pulse Ox 99 12/27/21 06:30 O2 Del Method 12/27/21 06:30 See admission H&P and DOD summary. Principal Diagnosis Major Depressive Disorder Psychiatric Data See daily stay summary. In short, patient was engaged with the social/therapeutic milieu of the unit, safety was maintained and the patient was cooperative with care. Medication changes included addition of mirtazapine 7.5mg qhs and they tolerated this well. Significant focus was on root cause analysis of factors leading to her suicide attempt, utilized CAMS framework to identify factors leading to suicidality and treatment focus on reducing stress related to work. A family session was held and safety plan was completed prior to discharge. She actively and insightfully participated in safety planning and in discussions about ways to seek support and recognizing warning signs and utilizing coping skills. Reviewed mobile apps that could be used for additional ways to have their safety plan and contacts easily available should thoughts of SI re-emerge in the future. Reviewed importance of seeking emergency care should SI intensify, worsen or should they feel unsafe in the future which they agree to do. On the day of discharge she stated her mood was "buoyant and good" and remained future-oriented including looking forward to seeing her family, dogs, grandchild, going for walks and a camping trip at the end of the month and engaging in aftercare appointments for psychiatry and therapy. Day of Discharge Assessment Today the patient voices readiness for discharge. They note improvement in mood and anxiety. They deny thoughts of harm to self or others. Thoughts are organized and they are clinically improved from admission. There is no evidence of psychosis. They improved in the hospital with support and medication adjustments. They agree to take medications as prescribed and keep follow-up appointments. At the time of the discharge they are deemed to be stable and appr opriate for outpatient level of care. They are not deemed to be at imminent risk of harm to self or others. They are aware of emergency and crisis services. Knows to call 911 or go to nearest emergency care center if in a crisis which cannot be handled as an outpatient. Transition of Care Transition Of Care Record: was reviewed with the patient Advance Directives Advance Directives Information Provided: Yes Advance Directives: No Mental Health Advance Directive: No Advance Directives on File: No Living Will: No Power of Consumer Loan Underwriter: No Advance Directives Reason:: Declines as Mental Health Visit. Suicide Risk Level Suicide Risk Level Comments: Acute risk is low given improvement in mood and denial of SI, lack of access to lethal means, improvement in sleep, hopefulness and reduction of stressors especially related to work. Chronic risk is moderate given some non-modifiable risk factors including periods of impulsivity, prior attempt, emotional reactivity, prior psychiatric hospitalizations, mood disorder but also with protective factors including excellent support from her family, sense of responsibility to her family, capacity for self-observation, positive coping skills, positive problem solving, capacity to establish therapeutic alliance in outpatient therapy and willingness to comply with treatment plan. Counseled on ways to reduce acute and chronic risk including engaging with outpatient providers, using safety plan if needed, utilizing supports, taking medication, and using coping skills. Modifiable risk factors of SI, insomnia and depression were addressed during hospitalization through development of new coping skills, family meeting, safety planning, and medication adjustments. Risk Factors Assessment : Yes Do You Have Access To A Gun?: No (reports locked in a cabinet and doesn't access) Mental Health Diagnoses: Yes Substance Use Disorders: No Previous Psychiatric Hospitalization: Yes Hopelessness: No Protective Factors Assessment : Yes Employed: Yes ([employer]) Stable Relationships: Yes Supportive Family: Yes Discharge Data Lab Results 12/26/21 12/26/21 12/26/21 09:57 09:57 09:57 WBC 8.85 RBC 4.72 Hgb 13.4 Hct 40.1 MCV 85.0 MCH 28.4 MCHC 33.4 RDW Std Deviation 38.2 RDW Coeff of Tru 12.4 Plt Count 174 MPV 9.5 Immature Gran % (Auto) 0.3 Neut % (Auto) 74.9 Lymph % (Auto) 16.3 Lassen % (Auto) 7.9 Eos % (Auto) 0.3 Baso % (Auto) 0.3 Neut # (Auto) 6.62 H Lymph # (Auto) 1.44 Lassen # (Auto) 0.70 Eos # (Auto) 0.03 Baso # (Auto) 0.03 Immature Gran # (Auto) 0.03 H Sodium 135 L Potassium 4.0 Chloride 100 Carbon Dioxide 27 Anion Gap 8 BUN 16 Creatinine 0.88 Est Cr Clr Drug Dosing Not Reportable Est GFR ( Amer) 83.9 Est GFR (Non-Af Amer) 72.4 BUN/Creatinine Ratio 18.2 Glucose 228 H POC Glucose Calcium 9.3 Total Bilirubin 0.4 AST 15 ALT 18 Alkaline Phosphatase 93 Total Protein 7.3 Albumin 4.0 Globulin 3.3 Albumin/Globulin Ratio 1.2 TSH Urine Color Urine Appearance Urine pH Ur Specific Hammond Urine Protein Urine Glucose (UA) Urine Ketones Urine Blood Urine Nitrite Urine Bilirubin Urine Urobilinogen Ur Leukocyte Esterase Urine WBC (Auto) Urine RBC (Auto) U Hyaline Cast (Auto) U Epithel Cells (Auto) Urine Bacteria (Auto) Salicylates < 3.0 L Urine Opiates Screen Ur Methadone, Qual Acetaminophen < 3 L Urine Barbiturates Ur Phencyclidine (PCP) U Amphetamin/Meth Scrn MDMA (Ecstasy) Screen U Benzodiazepines Scrn Ur Cocaine Metabolite U Marijuana (THC) Screen Ethyl Alcohol mg/dL SARS-CoV-2, RNA, NAAT 12/26/21 12/26/21 12/26/21 09:57 09:57 Unknown WBC RBC Hgb Hct MCV MCH MCHC RDW Std Deviation RDW Coeff of Tru Plt Count MPV Immature Gran % (Auto) Neut % (Auto) Lymph % (Auto) Lassen % (Auto) Eos % (Auto) Baso % (Auto) Neut # (Auto) Lymph # (Auto) Lassen # (Auto) Eos # (Auto) Baso # (Auto) Immature Gran # (Auto) Sodium Potassium Chloride Carbon Dioxide Anion Gap BUN Creatinine Est Cr Clr Drug Dosing Est GFR ( Amer) Est GFR (Non-Af Amer) BUN/Creatinine Ratio Glucose POC Glucose Calcium Total Bilirubin AST ALT Alkaline Phosphatase Total Protein Albumin Globulin Albumin/Globulin Ratio TSH 0.825 Urine Color Yellow Urine Appearance Clear Urine pH 5.5 Ur Specific Hammond 1.011 Urine Protein Negative Urine Glucose (UA) 2+ H Urine Ketones Trace H Urine Blood Negative Urine Nitrite Negative Urine Bilirubin Negative Urine Urobilinogen Negative Ur Leukocyte Esterase 1+ H Urine WBC (Auto) 1-5 Urine RBC (Auto) 0-4 U Hyaline Cast (Auto) 0 U Epithel Cells (Auto) >30 H Urine Bacteria (Auto) Negative Salicylates Urine Opiates Screen Ur Methadone, Qual Acetaminophen Urine Barbiturates Ur Phencyclidine (PCP) U Amphetamin/Meth Scrn MDMA (Ecstasy) Screen U Benzodiazepines Scrn Ur Cocaine Metabolite U Marijuana (THC) Screen Ethyl Alcohol mg/dL < 10.0 SARS-CoV-2, RNA, NAAT 12/26/21 12/26/21 12/27/21 Unknown Unknown 06:51 WBC RBC Hgb Hct MCV MCH MCHC RDW Std Deviation RDW Coeff of Tru Plt Count MPV Immature Gran % (Auto) Neut % (Auto) Lymph % (Auto) Lassen % (Auto) Eos % (Auto) Baso % (Auto) Neut # (Auto) Lymph # (Auto) Lassen # (Auto) Eos # (Auto) Baso # (Auto) Immature Gran # (Auto) Sodium Potassium Chloride Carbon Dioxide Anion Gap BUN Creatinine Est Cr Clr Drug Dosing Est GFR ( Amer) Est GFR (Non-Af Amer) BUN/Creatinine Ratio Glucose POC Glucose 102 H Calcium Total Bilirubin AST ALT Alkaline Phosphatase Total Protein Albumin Globulin Albumin/Globulin Ratio TSH Urine Color Urine Appearance Urine pH Ur Specific Hammond Urine Protein Urine Glucose (UA) Urine Ketones Urine Blood Urine Nitrite Urine Bilirubin Urine Urobilinogen Ur Leukocyte Esterase Urine WBC (Auto) Urine RBC (Auto) U Hyaline Cast (Auto) U Epithel Cells (Auto) Urine Bacteria (Auto) Salicylates Urine Opiates Screen Neg Ur Methadone, Qual Neg Acetaminophen Urine Barbiturates Neg Ur Phencyclidine (PCP) Neg U Amphetamin/Meth Scrn Neg MDMA (Ecstasy) Screen Neg U Benzodiazepines Scrn Neg Ur Cocaine Metabolite Neg U Marijuana (THC) Screen Neg Ethyl Alcohol mg/dL SARS-CoV-2, RNA, NAAT NEGATIVE 12/28/21 12/29/21 12/30/21 06:48 06:38 06:47 WBC RBC Hgb Hct MCV MCH MCHC RDW Std Deviation RDW Coeff of Tru Plt Count MPV Immature Gran % (Auto) Neut % (Auto) Lymph % (Auto) Lassen % (Auto) Eos % (Auto) Baso % (Auto) Neut # (Auto) Lymph # (Auto) Lassen # (Auto) Eos # (Auto) Baso # (Auto) Immature Gran # (Auto) Sodium Potassium Chloride Carbon Dioxide Anion Gap BUN Creatinine Est Cr Clr Drug Dosing Est GFR ( Amer) Est GFR (Non-Af Amer) BUN/Creatinine Ratio Glucose POC Glucose 135 H 126 H 130 H Calcium Total Bilirubin AST ALT Alkaline Phosphatase Total Protein Albumin Globulin Albumin/Globulin Ratio TSH Urine Color Urine Appearance Urine pH Ur Specific Hammond Urine Protein Urine Glucose (UA) Urine Ketones Urine Blood Urine Nitrite Urine Bilirubin Urine Urobilinogen Ur Leukocyte Esterase Urine WBC (Auto) Urine RBC (Auto) U Hyaline Cast (Auto) U Epithel Cells (Auto) Urine Bacteria (Auto) Salicylates Urine Opiates Screen Ur Methadone, Qual Acetaminophen Urine Barbiturates Ur Phencyclidine (PCP) U Amphetamin/Meth Scrn MDMA (Ecstasy) Screen U Benzodiazepines Scrn Ur Cocaine Metabolite U Marijuana (THC) Screen Ethyl Alcohol mg/dL SARS-CoV-2, RNA, NAAT 12/31/21 01/01/22 06:33 06:20 WBC RBC Hgb Hct MCV MCH MCHC RDW Std Deviation RDW Coeff of Tru Plt Count MPV Immature Gran % (Auto) Neut % (Auto) Lymph % (Auto) Lassen % (Auto) Eos % (Auto) Baso % (Auto) Neut # (Auto) Lymph # (Auto) Lassen # (Auto) Eos # (Auto) Baso # (Auto) Immature Gran # (Auto) Sodium Potassium Chloride Carbon Dioxide Anion Gap BUN Creatinine Est Cr Clr Drug Dosing Est GFR ( Amer) Est GFR (Non-Af Amer) BUN/Creatinine Ratio Glucose POC Glucose 97 105 H Calcium Total Bilirubin AST ALT Alkaline Phosphatase Total Protein Albumin Globulin Albumin/Globulin Ratio TSH Urine Color Urine Appearance Urine pH Ur Specific Hammond Urine Protein Urine Glucose (UA) Urine Ketones Urine Blood Urine Nitrite Urine Bilirubin Urine Urobilinogen Ur Leukocyte Esterase Urine WBC (Auto) Urine RBC (Auto) U Hyaline Cast (Auto) U Epithel Cells (Auto) Urine Bacteria (Auto) Salicylates Urine Opiates Screen Ur Methadone, Qual Acetaminophen Urine Barbiturates Ur Phencyclidine (PCP) U Amphetamin/Meth Scrn MDMA (Ecstasy) Screen U Benzodiazepines Scrn Ur Cocaine Metabolite U Marijuana (THC) Screen Ethyl Alcohol mg/dL SARS-CoV-2, RNA, NAAT Hospital Course (1) MDD (major depressive disorder), recurrent episode, severe: (2) Depression: (3) Suicide attempt by multiple drug overdose: Plan 12/31/21: Continue current medications and tx plan. 12/30/21: Continue current medications and tx plan. 12/29/21: Continue with current medications. Mirtazapine 7.5mg qhs start tonight. 12/28/21: Continue Paxil 40mg qd. Use CAMS approach for identifying driving factors/modifiable risk factors/treatment approaches for suicidality. 12/27/21: The patient was admitted to the [facility] ([facility] mental health unit) on q15 min checks (behavioral with suicide precautions) for safety. The patient will participate in group, recreational, and milieu therapies and will be offered additional individual and family sessions as clinically appropriate. Mental Health & Subst Abuse Tx Psychiatrist Name of Psychiatrist: Mary Anne Torrez Psychiatrist's Date of Appointment with Psychiatrist: 01/13/22 Time of Appointment with Psychiatrist: 10:15 AM Psychiatric Appointment Comment: [address] [facility], [place], [place] Therapist Name of Therapist: Mabel Dominguez Therapist's Date of Therapist Appointment: 01/28/22 Time of Therapist Appointment: 10:30am Therapy Appointment Comment: [address] [place] [address] , [address], [place], [place] Candy Separator Enrobing Name of Candy Separator Enrobing: None Post Discharge Appointments Primary Care Physician Name Of Family Doctor: Brittni PATHAK Provider Appointment Comment: Please follow-up with your PCP as needed. Contact Information Discharge Discharge [address]: [address] [place] [id number] Discharge Plan Discharge Items Patient Disposition: Home - Self-Care Reason For Visit: DEPRESSIVE DISORDER Discharge Diagnosis: Major Depressive Disorder Activity: Resume your previous activity Non-emergency contact: Primary Care Provider, Psychiatrist and Therapist Call non-emergency contact if: you have any medication questions and your symptoms worsen Follow-up/Referrals: Brittni Sigala CRNP [Primary Care Provider] - Diet: Regular Addtl Attending Provider Instructions: Optional mobile apps we discussed: -Suicide safety plan -Virtual Hope Box SPECIAL CARE INSTRUCTIONS: 1. Follow through with your scheduled aftercare appointments. If unable to keep an appointment, please call to reschedule. 2. Take your medication only as prescribed. Medication should not be changed or stopped without the approval of your doctor. In the event of worsening symptoms or concerns about side effects, contact your doctor immediately. 3. Utilize new healthy coping skills, anger management skills, and stress management skills learned during your hospitalization. Journal feelings and process them with a support person. Identify stressors or situations that may result in relapse, deterioration or inappropriate behaviors and develop a plan to deal with those issues. 4. If your coping skills are ineffective and you are in crisis, contact your outpatient providers for direction. If unable to reach your providers, please call the [facility] CRISIS LINE AT , go to the [facility] walk-in center at [address], [place], or go to the closest Emergency Room. 5. Avoid alcohol and un-prescribed drugs. 6. You have been provided with the Mental Health Advance Directives Pamphlet for your review. 7. Your condition is stable for discharge to outpatient level of care, but recovery is an ongoing process. Ifthoughts to harm yourself or others return, follow the safety plan developed during your stay. Planning for a safe return home includes securing weapons. Our treatment team recommends weaponsbe removed from the home until your outpatient provider reassesses your progress. In rare cases where the items themselvescannot be removed, guns and ammunitionshould be secured separatelyand keys stored by a reliable personoutside of the home. If you were admitted on an involuntary commitment, the police or other legal authorities may be involved in this process. AFTERCARE APPOINTMENTS: * Please call your insurance company prior to your scheduled appointment to confirm your aftercare providers are covered. Take your insurance information to your appointments. WHO TO CALL AND WHEN: Medical Emergencies: For questions or emergencies related to your hospital stay, please contact the Inpatient Behavioral Health Unit at [phone]. A cattle dipper is on-call 08/09 for the Behavioral Health Unit for emergencies At any time you feel your situation is an emergency, you may also call 911 immediately. Pending Studies at Discharge: No Stand-Alone Forms: [facility] Medications and DC Order Prescriptions: New mirtazapine 15 mg Tablet 7.5 mg PO HS 30 Days Qty: 15 0RF Continued metformin 1,000 mg tablet 1,000 mg PO BID lisinopril 10 mg tablet 10 mg PO DAILY glimepiride 4 mg tablet 4 mg PO DAILY pantoprazole 40 mg Tablet,Delayed Release (Dr/Ec) 40 mg PO DAILY paroxetine HCl 40 mg Tablet 40 mg PO DAILY simvastatin 40 mg tablet 40 mg PO HS Ozempic 1 mg/dose (4 mg/3 mL) pen injector 1 mg SUBCUT WK Rx Instructions: weekly on Thursday Discontinued eszopiclone [Lunesta] 2 mg tablet 2 mg PO HS PRN (Reason: Insomnia) Discharge Orders: Discharge Order (Routine); Ordered 01/01/22 Ordered By: Yvette Colbert Admission Data Admit Date/Time: 12/26/21 18:22 Attending Provider: Yvette Colbert Admit Provider: Suzette Vazquez Primary Care Provider: Brittni Sigala Other Interventions: Discharge Summary Assessment (RN) Last Done: 01/01/22 10:21 PSY Interdisciplinary Discharge Planning Last Done: 01/01/22 10:13 Coding Level of Care Code 71054 D/C day mgmt > 30 min Diagnoses MDD (major depressive disorder), recurrent episode, severe F33.2 Depression F32.9 Suicide attempt by multiple drug overdose T50.912A Encounter type: initial encounter Time Spent (min) 32
== END 2022-01-01 10:53 | disposition home or self-care (01) | DRG 885 ==
LOC: ED 08:34 → 3S 18:00 → SUATTDRO 18:22 → 3S 12-30 12:20